=== PATIENT | male | born 1955 | race Caucasian/White ===

== ENCOUNTER 2019-07-10 07:58 | Outpatient (CLI) | payer OTHER, SELFPAY ==
--- NOTE | 2019-07-10 08:05 | USCV_ITS ---
Rick Hilary Age: 63 Gender: M : 1955 Exam Date: 07/10/2019 08:20 Ordering Phys: lIya Craven MD ([email or web address]) Technologist: Lina Wahl [place] [facility] [place]: DYSPNEA ON EXERTION BP: 107 / 74 HR: 110 Rhythm: Sinus Technical Quality: Good MEASUREMENTS (Male / Female) Normal Values 2D ECHO LV Diastolic Diameter PLAX 5.1 cm 4.2 - 5.9 / 3.9 - 5.3 cm LV Systolic Diameter PLAX 3.8 cm IVS Diastolic Thickness 1.0 cm 0.6 - 1.0 / 0.6 - 0.9 cm IVS Systolic Thickness 1.4 cm LVPW Diastolic Thickness 1.1 cm 0.6 - 1.0 / 0.6 - 0.9 cm LVPW Systolic Thickness 1.6 cm LVOT Diameter 2.0 cm LV Ejection Fraction 2D Teich 48.6 % LV Ejection Fraction MOD 2C 55.0 % LV Ejection Fraction 2C AL 57.4 % LA Diameter 4.3 cm LA Width 4.6 cm LA Height 6.7 cm RA Width 3.6 cm RA Height 6.6 cm Aorta at Sinotubular Diameter 2.9 cm M-MODE LV Diastolic Diameter MM 5.0 cm 4.2 - 5.9 / 3.9 - 5.3 cm LV Systolic Diameter MM 3.7 cm LV Ejection Fraction MM Teich 50.7 % IVS Diastolic Thickness MM 0.9 cm 0.6 - 1.0 / 0.6 - 0.9 cm IVS Systolic Thickness MM 1.2 cm LVPW Diastolic Thickness MM 1.1 cm 0.6 - 1.0 / 0.6 - 0.9 cm LVPW Systolic Thickness MM 1.5 cm Aortic Annulus Diameter 3.4 cm LA Ao Ratio MM 1.3 MV E Point Septal Separation 0.7 cm DOPPLER AV Peak Velocity 120.0 cm/s LVOT Peak Velocity 86.0 cm/s AV Area Cont Eq vti 2.4 cm squared AV Area Cont Eq pk 2.3 cm squared MV Area PHT 3.7 cm squared MV E' Velocity 97.0 cm/s TR Peak Velocity 204.2 cm/s TR Peak Gradient 16.7 mmHg TR Mean Velocity 163.1 cm/s TR Mean Gradient 11.3 mmHg TR Velocity Time Integral 52.3 cm TV Peak E Velocity 58.0 cm/s Right Atrial Pressure 3.0 mmHg Pulmonary Artery Systolic Pressu 19.7 mmHg PV Peak Velocity 76.0 cm/s RV Acceleration Time 0.1 s RV Ejection Time 0.2 s RV AcT/ET 0.3 FINDINGS Left Ventricle Mild diffuse hypokinesia of the left ventricle with ejection fraction around 45-50%. Right Ventricle Normal right ventricular size and systolic function. Right Atrium Mildly increased right atrial size. Left Atrium Mildly increased left atrial size. Mitral Valve Thickened mitral valve. Moderate mitral valve regurgitation. Aortic Valve Minimally thickened aortic valve Tricuspid Valve Tucq-ha-[id number] tricuspid valve regurgitation. Pulmonic Valve Pulmonic valve not well visualized. Pericardium No pericardial effusion. Aorta Normal aortic annulus size. CONCLUSIONS Mild diffuse hypokinesia of the left ventricle with ejection fraction around 45-50%. Mild biatrial enlargement. Minimally thickened aortic valve Thickened mitral valve. Moderate mitral valve regurgitation. Mgff-ft-mpbdmvzh tricuspid valve regurgitation. Estimated pulmonary artery peak systolic pressure of 20 mmHg. There is no pericardial effusion. There are no intracardiac masses. No similar previous studies are available for combat Dr Ilya Craven MD [facility] (Electronically Signed) Final Date: 10 July 2019 19:37 S
== END 2019-07-10 07:59 | disposition home or self-care (01) ==
PROVIDERS: Family Provider Emergency Medicine Emergency Medical Services; PCP Emergency Medicine Emergency Medical Services; Visit Provider Internal Medicine Cardiovascular Disease
DX: I48.91 Unspecified atrial fibrillation (principal); I08.3 Combined rheumatic disorders of mitral, aortic and tricuspid valves; R06.00 Dyspnea, unspecified
CPT/HCPCS: 93306

== ENCOUNTER 2019-07-18 08:48 | Outpatient (CLI) | payer OTHER, SELFPAY ==
[2019-07-18 09:13] VITALS: BMI 26.4
--- NOTE | 2019-07-18 09:24 | ECG_ITS ---
NAME OF STUDY: LEXISCAN SESTAMIBI STRESS TEST INDICATION: Chest Pain, PROCEDURE: At the baseline, the EKG revealed atrial fibrillation with rapid ventricular rate. Poor R wave progression. Nonspecific T wave changes. The baseline blood pressure was 147/96 mm Hg with a heart rate of 131 beats/min. Lexiscan was infused over a period of 20 seconds. A total of 0.4 milligrams of Lexiscan was infused. The stress phase was continued for a total of 5 minutes. Heart rate at the end of the stress phase was 148 with a blood pressure 150/106. The EKG at the peak infusion revealed no significant changes. Sestamibi was injected 20 seconds after the Lexiscan infusion. Blood pressure at the end of the recovery phase was 127/96 with a heart rate of 140 per minute. CONCLUSION: 1. No significant EKG changes with the LexiScan infusion 2. No LexiScan induced chest pain or cardiac arrhythmia 3. Normal blood pressure and heart rate response 4. Sestamibi/sestamibi perfusion scan pending; see separate report. Electronically Signed On 07-18-2019 13:45:42 [facility] by Ilya Craven M.D. [email or web address]
--- NOTE | 2019-07-18 09:25 | NMCV_ITS ---
Hilary Cabrera Age: 63 Gender: M : 1955 Exam Date: 07/18/2019 09:46 Ordering Phys: Ilya Craven MD ([email or web address]) Technologist: TANISHA Aggarawl Exam Location: [facility] Indications: Dyspena STRESS TEST Please see separate stress test report in [facility] for full findings IMAGE PROTOCOL Rest/Stress 1 Lexiscan Day Radiopharmaceutical Dose (mCi) Administration Site Administered by Rest: Tc-99m 10.4 IV TANISHA Aggarwal Stress:Tc-99m 29.3 IV TANISHA Aggarwal Rest: 07/18/2019 60 Discovery 630 Stress: 07/18/2019 60 Discovery 630 0.4mg Lexiscan. Images obtained in supine and prone position. SPECT RESULTS Technical Quality: Good Raw Data Analysis: Adequate Image Corrections: No attenuation or motion correction applied Summed Stress Score: 1 Summed Rest Score: 5 Summed Difference Score: 0 PERFUSION FINDINGS Small area of slightly decreased tracer uptake in the mid and apical inferior wall regions and LV apex with no significant reversibility. FUNCTIONAL RESULTS (calculated via Gated SPECT) Stress Image LV EF (%): 37 Stress EDV (mL):154 TID: 1.25 Stress ESV (mL):97 FUNCTIONAL FINDINGS: Segmental wall motion analysis revealed diffuse hypokinesia of the left ventricle. IMPRESSIONS #1. Myocardial perfusion imaging revealing small areas of persistent decreased tracer uptake in the inferior wall and LV apex, suggestive of myocardial scarring versus attenuation artifact. #2. Moderately diminished LV ejection fraction of 37%. #3. LV wall motion analysis revealing diffuse hypokinesia of the left ventricle. #4. Moderately dilated LV cavity with an end-systolic volume of 97 mL. #5. Elevated transient ischemic dilatation ratio, may suggest endocardial ischemia. But the positive predictive value of this finding is limited. Clinical correlation is recommended. Dr Ilya Craven MD [facility] (Electronically Signed) Final Date: 19 July 2019 00:11 S
[2019-07-18] MEDS: regadenoson 0.4 Mg/5 ml Syringe IVP (10:34)
[2019-07-18 10:38] VITALS: BP 139/107; PULSE 140
== END 2019-07-18 08:49 | disposition home or self-care (01) ==
LOC: RAD 08:50
PROVIDERS: Family Provider Emergency Medicine Emergency Medical Services; PCP Emergency Medicine Emergency Medical Services; Visit Provider Internal Medicine Cardiovascular Disease
DX: I48.91 Unspecified atrial fibrillation (principal); R06.00 Dyspnea, unspecified
CPT/HCPCS: 78452; 93017; A9500; J2785

== ENCOUNTER → 2019-08-28 10:00 | Outpatient (BNVA) | payer OTHER, SELFPAY | PROVIDERS: Family Provider Emergency Medicine Emergency Medical Services; PCP Emergency Medicine Emergency Medical Services; Visit Provider Urology | DX: N13.8 Other obstructive and reflux uropathy (principal); N40.1 Benign prostatic hyperplasia with lower urinary tract symptoms; R31.21 Asymptomatic microscopic hematuria | CPT/HCPCS: 81001 ==

== ENCOUNTER → 2020-02-17 13:25 | Outpatient (BNVA) | payer OTHER, SELFPAY | PROVIDERS: Family Provider Emergency Medicine Emergency Medical Services; PCP Emergency Medicine Emergency Medical Services; Referring Provider Emergency Medicine Emergency Medical Services; Visit Provider Specialist | DX: G56.01 Carpal tunnel syndrome, right upper limb (principal); G56.02 Carpal tunnel syndrome, left upper limb | CPT/HCPCS: 73110 ==

== ENCOUNTER 2020-02-28 09:05 | Day surgery (SDC) | payer OTHER, SELFPAY ==
--- NOTE | 2020-02-28 09:23 | ECG_ITS ---
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 Measurements Intervals [place] Rate: 73 P: VT: -1 QRS: -2 QRSD: 92 T: 21 QT: 386 QTc: 427 Interpretive Statements ATRIAL FIBRILLATION ABNORMAL RHYTHM ECG No previous ECG available for comparison Electronically Signed On 02-28-2020 20:20:37 CDT by Ina Bautista M.D. [id number]
[2020-02-28 09:26] VITALS: BP 127/86; PULSE 63; RESP 18; TEMP 36.9; O2SAT 97; BMI 25.4
--- NOTE | 2020-02-28 09:32 | ANES.PREANE2 ---
Pre-Anesthetic Assessment Pre-Anesthetic Assessment: Height/Weight: Height 1.78 m Weight 80.286 kg Temp Pulse Resp BP Pulse Ox 98.4 F 63 18 127/86 97 02/28/20 09:26 02/28/20 09:26 02/28/20 09:26 02/28/20 09:26 02/28/20 09:26 Preop Diagnosis: afib Proposed Procedure: Operation Date: 02/28/20 10:00 Proposed Procedures p Cardioversion(Not Applicable) - Ilya Craven MD Was Beta Nickie taken within 24 hours: Yes Last intake: 02/26 Social: Social History: Alcohol (6p) Exam: Pre-Anes Outpt Exam: alert, oriented x 3, clear to auscultation bilaterally and regular rate & rhythm Airway: Submandibular: WNL Cervical ROM: WNL MP: 2 Dentition: Full History/ROS: No significant history except as noted and No significant complaints Pulmonary: Pulmonary: None reported CV/HEM: CV/HEM: Afib, CHF and HTN : : None reported Hepatic: Hepatic: None reported GI: GI: None reported Metabolic: Metabolic: None reported Musc/skel: Musc/skel: OA/DJD Neuropsych: Neuropsych: None reported Anesthetic Plan: ASA status: 4 Anesthesia: MAC PFSH Anesthesia PFSH: Medical History Asymptomatic microscopic hematuria Atrial fibrillation Atrial fibrillation with rapid ventricular response BPH with obstruction/lower urinary tract symptoms Cardiomyopathy Fatigue Hematuria Primary hypertension Shortness of breath Stricture of urethral meatus in male Surgical History History of cataract surgery Hx of tonsillectomy S/P wisdom tooth extraction Family History Other Cancer Social History Smoking and tobacco status: smoker, details unknown smokeless tobacco Smokeless tobacco user: chewing tobacco Alcohol intake: current Alcohol intake frequency: 0-2 Drinks per Day Alcohol type: beer Adopted: No Caregiver/support person: No Lives independently: No Household members: spouse Housing: House Marital status: Current occupational status: retired History of recent travel: No Current gender identity: Male Data Anesthesia Cardiac Studies: Holter Monitor 01/29/20
--- NOTE | 2020-02-28 09:36 | W.PM.OPSUD ---
Surgery/Procedure H&P Update DATE OF PROCEDURE: February 28, 2020 DATE H&P PERFORMED: 02/04/20 H&P UPDATE INFORMATION: I have reviewed H&P completed within last 30 days, I have examined patient prior to procedure and No changes to prior documentation PREOP DIAGNOSIS: Symptomatic atrial fibrillation PLANNED PROCEDURE: Operation Date: 02/28/20 10:00 Proposed Procedures p Cardioversion(Not Applicable) - Ilya Craven MD PATIENT REASSESSED PRIOR TO SEDATION, WITH NO CHANGE NOTED: Yes PHYSICAL EXAM: alert, oriented x 3 and clear to auscultation bilaterally AIRWAY EVAL/ANESTHESIA PLAN: normal airway, see other exam findings, ASA II and Monitored Anesthesia
[2020-02-28 09:54] VITALS: BP 104/70; PULSE 57; RESP 16; TEMP 36.9; O2SAT 100
--- NOTE | 2020-02-28 10:12 | SUR.PHASEII ---
TOTAL NS RECIEVED DURING CARDIOVERSION
[2020-02-28] MEDS: propafenone 150 mg Tablet PO (10:13)
--- NOTE | 2020-02-28 10:29 | ECG_ITS ---
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 Measurements Intervals [place] Rate: 53 P: 34 HI: 149 QRS: -11 QRSD: 102 T: 18 QT: 448 QTc: 421 Interpretive Statements SINUS BRADYCARDIA LOW QRS VOLTAGE IN PRECORDIAL LEADS Non specific T wave changes Compared to ECG 02/28/2020 09:38:55 Low QRS voltage now present Atrial fibrillation no longer present Electronically Signed On 02-28-2020 20:20:15 CDT by Ina Bautista M.D. [id number]
--- NOTE | 2020-03-13 16:33 | PM.OP ---
Operative Report Date of procedure: 02/28/2020 Pre-op Diagnosis: Symptomatic atrial fibrillation Procedure: Electrical cardioversion report Preprocedure diagnoses: Atrial fibrillation/hypertension. Brief history: This is a 64-year-old white male with history of symptomatic atrial fibrillation, was recommended for a electrical cardioversion for symptom relief and further management during his last office visit. Location of the procedure: Outpatient, [facility] Electrode application: Anteroposterior Electrical energy applied: 150 J Number of shocks: 2 Final rhythm: Normal sinus rhythm Final blood pressure: 106/60 Complications: None Recommendation(s): Patient was started on propafenone 150 mg p.o. every 8 hours. The first dose was given in the hospital. The patient tolerated the procedure very well and there are no complications
== END 2020-02-28 10:56 | disposition home or self-care (01) ==
PROVIDERS: PCP Emergency Medicine Emergency Medical Services; Visit Provider Internal Medicine Cardiovascular Disease
PROC: 5A2204Z Restoration of Cardiac Rhythm, Single (ICD-10-PCS; CPT 92960; principal; 2020-02-28 10:00)
DX: I48.91 Unspecified atrial fibrillation (principal); I11.0 Hypertensive heart disease with heart failure; I50.9 Heart failure, unspecified; I42.9 Cardiomyopathy, unspecified; F17.220 Nicotine dependence, chewing tobacco, uncomplicated; Z79.01 Long term (current) use of anticoagulants; Z79.82 Long term (current) use of aspirin
CPT/HCPCS: 92960; 12345; 93005; J2704; J7030

== ENCOUNTER → 2020-04-07 15:08 | Outpatient (BNVA) | payer OTHER, SELFPAY | PROVIDERS: PCP Emergency Medicine Emergency Medical Services; Visit Provider Specialist | DX: Z11.59 Encounter for screening for other viral diseases (principal) | CPT/HCPCS: 87635 ==

== ENCOUNTER 2020-04-10 06:04 | Day surgery (SDC) | payer OTHER, SELFPAY ==
[2020-04-09 08:29] VITALS: BMI 25.8
[2020-04-10 06:16] VITALS: BP 126/82; PULSE 52; RESP 18; TEMP 36.6; O2SAT 96
[2020-04-10] MEDS: CELEcoxib 200 mg Capsule 400 MG PO (06:35)
[2020-04-10] MEDS: sodium chloride 0.9% 1,000 ML 30 ML IV (06:40)
--- NOTE | 2020-04-10 06:48 | P.HPUD_ITS ---
Surgery/Procedure H&P Update DATE OF PROCEDURE: April 10, 2020 DATE H&P PERFORMED: 04/02/20 H&P UPDATE INFORMATION: I have reviewed H&P completed within last 30 days, I have examined patient prior to procedure, No changes to prior documentation and [place] is [place] [facility] [place] indicated PREOP DIAGNOSIS: Left carpal tunnel syndrome PLANNED PROCEDURE: Operation Date: 04/10/20 07:00 Proposed Procedures p Carpal Tunnel Release 31907 G56.02(Left) - Amelia Bender MD Related Problem List Diagnoses (1) Carpal tunnel syndrome, left:
[2020-04-10 06:50] LABS: Basophils # 0.1 10^3/uL (0.0-0.1); Basophils % 0.6 %; Eosinophils # 0.2 10^3/uL (0.0-0.8); Eosinophils % 2.3 %; Hematocrit 48.4 % (42.0-52.0); Hemoglobin 16.1 g/dL (11.7-16.6); Lymphocytes # 1.7 10^3/uL (0.8-4.8); Lymphocytes % 20.1 %; Mean Corpuscular HGB Conc 33.3 g/dL (30.0-36.0); Mean Corpuscular Hemoglobin 31.7 pg (28.0-34.0); Mean Corpuscular Volume 95.3 fL (80-94); Mean Platelet Volume 10.7 fL (7.4-10.4); Monocytes # 0.8 10^3/uL (0.2-0.9); Neutrophils # 5.61 10^3/uL (1.8-7.7); Neutrophils % 67.6 %; Nucleated Red Blood Cells % 0 %; Platelet Count 232 10^3/cmm (130-400); Red Blood Count 5.08 10^6/uL (4.1-5.3); Red Cell Distribution Width 12.7 % (12.1-15.1); White Blood Count 8.3 10^3/uL (4.0-10.0)
--- NOTE | 2020-04-10 06:58 | P.ANESASSM_ITS ---
Pre-Anesthetic Assessment Pre-Anesthetic Assessment: Height/Weight: Height 1.78 m Weight 81.647 kg Temp Pulse Resp BP Pulse Ox 97.9 F 52 L 18 126/82 96 04/10/20 06:16 04/10/20 06:16 04/10/20 06:16 04/10/20 06:16 04/10/20 06:16 Preop Diagnosis: Left carpal tunnel syndrome Proposed Procedure: Operation Date: 04/10/20 07:00 Proposed Procedures p Carpal Tunnel Release 85750 G56.02(Left) - Amelia Bender MD Was Beta Nickie taken within 24 hours: Yes Last intake: Intake Last Liquid Date 04/09/20 Last Liquid Time 21:00 Last Solid Date 04/09/20 Last Solid Time 19:00 Social: Social History: No alcohol and No tobacco Exam: Pre-Anes Outpt Exam: alert, oriented x 3, clear to auscultation bilaterally and regular rate & rhythm Airway: Submandibular: WNL Cervical ROM: WNL MP: 2 Dentition: Chipped History/ROS: No significant complaints Pulmonary: Pulmonary: None reported CV/HEM: CV/HEM: Afib and HTN Hepatic: Hepatic: None reported GI: GI: None reported Metabolic: Metabolic: None reported Musc/skel: Musc/skel: None reported Neuropsych: Neuropsych: None reported Anesthetic Plan: ASA status: 3 Anesthesia: MAC Risk of > 500 ml blood loss (7ml/kg in children): No Meds/Allergies Current Medications: Current Medications Generic Name Dose Route Start Last Admin Trade Name Freq PRN Reason Stop Dose Admin Sodium Chloride 1,000 mls @ 30 ml s/hr 04/10/20 06:15 04/10/20 06:40 Sodium Chloride 0.9% IV 04/11/20 06:14 30 mls/hr .Q24H RAMÍREZ Administration PFSH Anesthesia PFSH: Medical History Asymptomatic microscopic hematuria Atrial fibrillation Atrial fibrillation with rapid ventricular response BPH with obstruction/lower urinary tract symptoms Cardiomyopathy Fatigue Hematuria Primary hypertension Shortness of breath Stricture of urethral meatus in male Surgical History History of cataract surgery Hx of tonsillectomy S/P wisdom tooth extraction Family History Other Cancer Social History Smoking and tobacco status: smoker, details unknown smokeless tobacco Smokeless tobacco user: chewing tobacco Alcohol intake: current Alcohol intake frequency: 0-2 Drinks per Day Alcohol type: beer Adopted: No Caregiver/support person: No Lives independently: No Household members: spouse Housing: House Marital status: Current occupational status: retired History of recent travel: No Current gender identity: Male Data Anesthesia CBC & Chem 7: 04/10/20 06:40 04/10/20 06:40 Other Labs: Laboratory Results - last 48 hr 04/10/20 06:40 WBC 8.3 RBC 5.08 Hgb 16.1 Hct 48.4 MCV 95.3 H MCH 31.7 MCHC 33.3 RDW 12.7 Plt Count 232 MPV 10.7 H Neut % (Auto) 67.6 Lymph % (Auto) 20.1 [place] % (Auto) 9.0 Eos % (Auto) 2.3 Baso % (Auto) 0.6 Neut # (Auto) 5.61 Lymph # (Auto) 1.7 [place] # (Auto) 0.8 Eos # (Auto) 0.2 Baso # (Auto) 0.1 Nucleated RBC % (auto) 0 Nucleated RBCs # 0.0 Cardiac Studies: Holter Monitor 01/29/20
[2020-04-10 07:06] LABS: Alanine Aminotransferase 19 U/L (0-41); Albumin Level 4.4 g/dL (3.5-5.2); Alkaline Phosphatase 57 IU/L (40-130); Aspartate Amino Transferase 25 U/L (0-40); Blood Urea Nitrogen 28 mg/dL (8-23); Calcium 9.4 mg/dL (8.5-10.5); Carbon Dioxide 23 mmol/L (22-29); Chloride 102 mmol/L (98-107); Globulin 2.7 g/dL (1.3-4.6); Glomerular Filtration Rate 47.1 mL/min (90-130); Glucose 136 mg/dL (65-115); Osmolality Calculated 290 mOsm/kg (285-295); Sodium 136 mmol/L (136-145); Total Protein 7.1 g/dL (6.6-8.7)
[2020-04-10 07:42] VITALS: BP 106/66; PULSE 51; RESP 14; TEMP 36.2; O2SAT 95
--- NOTE | 2020-04-10 07:59 | PM.OP ---
Operative Report Date of procedure: April 10, 2020 Pre-op Diagnosis: Left carpal tunnel syndrome Post-op diagnosis: same Post-op Findings: Compression across the median nerve Procedure Done: Left carpal tunnel release Specimens removed/disposition: None Pathology: none sent Surgeon: Amelia Bender Anesthesia: MAC (With Manuela block) Estimated blood loss (mL): 5 Tourniquet time (min): 30 IV fluids (mL): 500 Urine output (mL): 0 Urine output: No Long Complications: None Findings: Significant thickening of the transverse carpal ligament with compression across the median nerve and inflammation within the nerve Condition: stable Disposition: same day Brief History: This 64-year-old gentleman presented with complaints of bilateral carpal tunnel syndrome. The left was worse than the right. He wished to proceed with operative interventions. He was non-responsive to nonoperative measures. Risks and complications were discussed with him. Consents were signed and questions were answered. Procedure: The patient was brought to the operating theater. The patient had a Manuela block with MAC. The tourniquet was elevated to 250 mmHg for a total tourniquet time of 30 minutes. The patient was also given Ancef 2 g preoperatively. The arm was then prepped and draped with DuraPrep in usual fashion with the arm draped free. A surgical pause was performed. At the time, the surgical pause, we confirmed the site and side of surgery. We also confirmed the patient's identity, appropriate and timely administration of preoperative antibiotics and preoperative surgical markings. An incision was then made along the thenar crease. The incision crossed the wrist joint in a curvilinear fashion. Dissection continued through skin and soft tissues using a scalpel. The palmaris longus was identified along with the transverse carpal ligament. Each of these was released carefully to avoid injury to the median nerve. We were able to dissect gently into the carpal canal which was noted to be quite tight with significant compression across the median nerve. The nerve was visualized and was an hourglass shape. The canal was subsequently palpated to assure there was no bony encroachment upon the canal. There was a quite thickened fibrous tissue within the canal, and this was opened longitudinally as well. The canal was then palpated distally and proximally to assure that my small finger was passed easily without impingement. Finding this to be so, attention was directed to closure. The wound was irrigated with ropivacaine plain. It was then closed with 3-0 nylon in an interrupted mattress fashion. Sterile dressing was then placed consisting of Xeroform gauze, fluffed fluffs, sterile soft roll, a volar splint, and an Maciel wrap. The tourniquet was released after 30 minutes. There were no complications. There were no specimens. The procedure was well tolerated. Plan is the patient will be discharged home. Associated Problem List Diagnoses (1) Carpal tunnel syndrome, left:
[2020-04-10 08:13] VITALS: BP 120/73; PULSE 46; RESP 16; O2SAT 94
== END 2020-04-10 08:18 | disposition home or self-care (01) ==
PROVIDERS: PCP Emergency Medicine Emergency Medical Services; Visit Provider Specialist
PROC: (CPT 64721; principal; 2020-04-10 07:00)
DX: G56.02 Carpal tunnel syndrome, left upper limb (principal); I48.91 Unspecified atrial fibrillation; I10 Essential (primary) hypertension; N40.1 Benign prostatic hyperplasia with lower urinary tract symptoms; N13.8 Other obstructive and reflux uropathy; F17.290 Nicotine dependence, other tobacco product, uncomplicated
CPT/HCPCS: 64721; 12345; 36415; 80053; 85025; 96365; J0131; J0690; J2704; J3010; J3490; J7030

== ENCOUNTER → 2020-05-04 16:04 | Outpatient (BNVA) | payer OTHER, SELFPAY | PROVIDERS: PCP Emergency Medicine Emergency Medical Services; Visit Provider Specialist | DX: Z11.59 Encounter for screening for other viral diseases (principal) | CPT/HCPCS: 87635 ==

== ENCOUNTER 2020-05-08 07:24 | Day surgery (SDC) | payer OTHER, SELFPAY ==
[2020-05-07 17:55] VITALS: BMI 25.8
[2020-05-08 07:38] VITALS: BP 137/81; PULSE 52; RESP 18; TEMP 36.6; O2SAT 95
--- NOTE | 2020-05-08 07:45 | W.PM.OPSUD ---
Surgery/Procedure H&P Update DATE OF PROCEDURE: May 08, 2020 DATE H&P PERFORMED: 04/23/20 H&P UPDATE INFORMATION: I have reviewed H&P completed within last 30 days, No changes to prior documentation and H&P is in [facility] [place] on date indicated PREOP DIAGNOSIS: Right carpal tunnel syndrome PLANNED PROCEDURE: Operation Date: 05/08/20 09:00 Proposed Procedures p right Carpal Tunnel Release [id number] G56.00(Right) - Amelia Bender MD Related Problem List Diagnoses (1) Carpal tunnel syndrome on right:
[2020-05-08] MEDS: sodium chloride 0.9% 1,000 ML 30 ML IV (07:50)
[2020-05-08] MEDS: CELEcoxib 200 mg Capsule 400 MG PO (07:50)
--- NOTE | 2020-05-08 08:03 | P.ANESASSM_ITS ---
Pre-Anesthetic Assessment Pre-Anesthetic Assessment: Height/Weight: Height 1.78 m Weight 81.647 kg Temp Pulse Resp BP Pulse Ox 98 F 52 L 18 137/81 95 05/08/20 07:38 05/08/20 07:38 05/08/20 07:38 05/08/20 07:38 05/08/20 07:38 Preop Diagnosis: Right carpal tunnel syndrome Proposed Procedure: Operation Date: 05/08/20 09:00 Proposed Procedures p right Carpal Tunnel Release [id number] G56.00(Right) - Amelia Bender MD Familial anesthetic complications: None Was Beta Nickie taken within 24 hours: Yes Last intake: Intake Last Liquid Date 05/07/20 Last Liquid Time 19:00 Last Solid Date 05/07/20 Last Solid Time 19:00 Social: Social History: Tobacco Comment: chewing tobacco Exam: Pre-Anes Outpt Exam: alert, oriented x 3, clear to auscultation bilater ally and regular rate & rhythm Airway: Cervical ROM: WNL MP: 2 Dentition: Chipped CV/HEM: CV/HEM: Afib (s/p cardioversion - holding anticoagulation for surgery) and HTN Comments: 07/08/19 stress test --> EF 37%, LV hypokinesis Echo 07/10/19 - EF 45%, mod MVR, mod TVR Anesthetic Plan: ASA status: 3 Anesthesia: MAC and Regional (specify below) (bushra block) Risk of > 500 ml blood loss (7ml/kg in children): No Meds/Allergies Current Medications: Current Medications Generic Name Dose Route Start Last Admin Trade Name Freq PRN Reason Stop Dose Admin Sodium Chloride 1,000 mls @ 30 ml s/hr 05/08/20 07:45 05/08/20 07:50 Sodium Chloride 0.9% IV 05/09/20 07:44 30 mls/hr .Q24H RAMÍREZ Administration PFSH Anesthesia PFSH: Medical History Asymptomatic microscopic hematuria Atrial fibrillation Atrial fibrillation with rapid ventricular response BPH with obstruction/lower urinary tract symptoms Cardiomyopathy Fatigue Hematuria Primary hypertension Shortness of breath Stricture of urethral meatus in male Surgical History History of cataract surgery Hx of tonsillectomy S/P wisdom tooth extraction Family History Other Cancer Social History Smoking and tobacco status: smoker, details unknown smokeless tobacco Smokeless tobacco user: chewing tobacco Alcohol intake: current Alcohol intake frequency: 0-2 Drinks per Day Alcohol type: beer Adopted: No Caregiver/support person: No Lives independently: No Household members: spouse Housing: House Marital status: Current occupational status: retired History of recent travel: No Current gender identity: Male Data Anesthesia Cardiac Studies: Holter Monitor 01/29/20
[2020-05-08 08:14] LABS: Basophils # 0.1 10^3/uL (0.0-0.1); Basophils % 0.6 %; Eosinophils # 0.1 10^3/uL (0.0-0.8); Eosinophils % 1.4 %; Hematocrit 47.9 % (42.0-52.0); Hemoglobin 16.5 g/dL (11.7-16.6); Lymphocytes # 1.6 10^3/uL (0.8-4.8); Lymphocytes % 18.7 %; Mean Corpuscular HGB Conc 34.4 g/dL (30.0-36.0); Mean Corpuscular Volume 92.8 fL (80-94); Mean Platelet Volume 10.7 fL (7.4-10.4); Monocytes # 0.6 10^3/uL (0.2-0.9); Monocytes % 7.1 %; Neutrophils # 6.32 10^3/uL (1.8-7.7); Neutrophils % 71.7 %; Nucleated Red Blood Cells % 0 %; Platelet Count 242 10^3/cmm (130-400); Red Blood Count 5.16 10^6/uL (4.1-5.3); Red Cell Distribution Width 12.6 % (12.1-15.1); White Blood Count 8.8 10^3/uL (4.0-10.0)
[2020-05-08 08:29] LABS: Anion Gap 13.7 (5-19); Blood Urea Nitrogen 22 mg/dL (8-23); Calcium 9.6 mg/dL (8.5-10.5); Carbon Dioxide 26 mmol/L (22-29); Chloride 104 mmol/L (98-107); Glucose 122 mg/dL (65-115); Osmolality Calculated 295 mOsm/kg (285-295); Potassium 3.7 mmol/L (3.5-5.1); Sodium 140 mmol/L (136-145)
[2020-05-08] MEDS: ceFAZolin 1,000 MG in sodium chloride 0.9% (plus) 50 ML 100 MG IV (09:07)
[2020-05-08 09:45] VITALS: BP 113/66; PULSE 53; RESP 18; TEMP 36.4; O2SAT 94
--- NOTE | 2020-05-08 09:48 | PM.OP ---
Operative Report Date of procedure: May 08, 2020 Pre-op Diagnosis: Right carpal tunnel syndrome Post-op diagnosis: same Procedure Done: Right carpal tunnel release Specimens removed/disposition: None Pathology: none sent Surgeon: Amelia Bender Labour Market Economist: None Anesthesia: MAC (With Manuela block, ASA 2) Estimated blood loss (mL): 5 Tourniquet time (min): 24 Tourniquet time: At 250 mmHg IV fluids (mL): 300 Urine output (mL): 0 Urine output: No Long Complications: None Findings: Significant thickening of the transverse carpal ligament with compression across the median nerve. Significant compression across the canal Condition: stable Disposition: same day Brief History: This 64-year-old gentleman presented with complaints of bilateral carpal tunnel syndrome. The left was worse than the right. He underwent left carpal tunnel release in early April, and he wishes now to proceed with right. He wished to proceed with operative interventions. He was non-responsive to nonoperative measures. Risks and complications were discussed with him. Consents were signed and questions were answered. Procedure: The patient was brought to the operating theater. The patient had a Manuela block with MAC. The tourniquet was elevated to 250 mmHg for a total tourniquet time of 30 minutes. The patient was also given Ancef 2 g preoperatively. The arm was then prepped and draped with DuraPrep in usual fashion with the arm draped free. A surgical pause was performed. At the time, the surgical pause, we confirmed the site and side of surgery. We also confirmed the patient's identity, appropriate and timely administration of preoperative antibiotics and preoperative surgical markings. An incision was then made along the thenar crease. The incision crossed the wrist joint in a curvilinear fashion. Dissection continued through skin and soft tissues using a scalpel. The palmaris longus was identified along with the transverse carpal ligament. Each of these was released carefully to avoid injury to the median nerve. We were able to dissect gently into the carpal canal which was noted to be quite tight with significant compression across the median nerve. The nerve was visualized and was an hourglass shape. The canal was subsequently palpated to assure there was no bony encroachment upon the canal. The canal was then palpated distally and proximally to assure that my small finger was passed easily without impingement. Finding this to be so, attention was directed to closure. The wound was irrigated with ropivacaine plain. It was then closed with 3-0 nylon in an interrupted mattress fashion. Sterile dressing was then placed consisting of Xeroform gauze, fluffed fluffs, sterile soft roll, a volar splint, and an Maciel wrap. The tourniquet was released after 30 minutes. There were no complications. There were no specimens. The procedure was well tolerated. Plan is the patient will be discharged home. Associated Problem List Diagnoses (1) Carpal tunnel syndrome on right:
[2020-05-08 10:00] VITALS: BP 102/69; PULSE 44; RESP 18; O2SAT 94
--- NOTE | 2020-05-08 10:15 | ANE.PACU2 ---
Inpatient post-anesthesia follow up: Airway intact: Yes Vital signs: Temperature 97.6 F Pulse Rate 44 Respiratory Rate 18 Blood Pressure 102/69 Pulse Oximetry 94 Oxygen Delivery Me thod Room Air Oxygen Flow Rate Fraction of Inspir ed Oxygen Hydration adequate: Yes Nausea and vomiting: No Pain level: 2 Mental status: Baseline
== END 2020-05-08 10:18 | disposition home or self-care (01) ==
PROVIDERS: PCP Emergency Medicine Emergency Medical Services; Visit Provider Specialist
PROC: (CPT 64721; principal; 2020-05-08 09:00)
DX: G56.01 Carpal tunnel syndrome, right upper limb (principal); I48.91 Unspecified atrial fibrillation; N40.1 Benign prostatic hyperplasia with lower urinary tract symptoms; N13.8 Other obstructive and reflux uropathy; I10 Essential (primary) hypertension; F17.290 Nicotine dependence, other tobacco product, uncomplicated
CPT/HCPCS: 64721; 12345; 80048; 85025; 96365; J0131; J0690; J2704; J3010; J3490; J7030

== ENCOUNTER → 2020-10-14 07:59 | Outpatient (BNVA) | payer OTHER, SELFPAY | PROVIDERS: PCP Emergency Medicine Emergency Medical Services; Visit Provider Urology | DX: R31.21 Asymptomatic microscopic hematuria (principal); N40.1 Benign prostatic hyperplasia with lower urinary tract symptoms; N13.8 Other obstructive and reflux uropathy | CPT/HCPCS: 81003 ==

== ENCOUNTER → 2021-09-10 10:36 | Outpatient (BNVA) | payer OTHER, SELFPAY | PROVIDERS: PCP Emergency Medicine Emergency Medical Services; Visit Provider Surgery | DX: Z20.822 Contact with and (suspected) exposure to COVID-19 (principal) | CPT/HCPCS: 87635 ==

== ENCOUNTER 2021-09-15 07:35 | Day surgery (SDC) | payer OTHER, SELFPAY ==
[2021-09-10 14:02] VITALS: BMI 27.9
--- NOTE | 2021-09-15 07:53 | ANES.PREANE2 ---
Pre-Anesthetic Assessment Height/Weight: Height 1.78 m Weight 88.451 kg Preop Diagnosis: Right carpal tunnel syndrome Operation Date: 09/15/21 09:15 Proposed Procedures p Colonoscopy 08828 Z86.010(Not Applicable) - Miller Scott MD Familial anesthetic complications: None Was Beta Nickie taken within 24 hours: Yes Was Clonidine taken within 24 hours: N/A Last intake: > 8hrs Social Alcohol and Tobacco (chews) Exam alert, oriented x 3, clear to auscultation bilaterally and regular rate & rhythm Airway Mallampati: Class II Dentition: full Pulmonary None reported CV/HEM Atrial Fibrillation and Hypertension None reported Hepatic None reported GI None reported Metabolic None reported Musc/skel None reported Neuropsych None reported Anesthetic Plan ASA status: 3 Anesthesia: MAC Risk of > 500 ml blood loss (7ml/kg in children): No Medications/Allergies Home Medications Medication Instructions Recorded Confirmed Last Taken Type tamsulosin 0.4 mg capsule 0.4 mg PO QDAY 07/30/19 09/10/21 05/07/20 History diltiazem HCl 300 mg capsule,24 300 mg PO DAILY #30 cap 03/23/20 09/10/21 05/08/20 06:00 Rx hr,extended release hydrochlorothiazide 25 mg tablet 25 mg PO QAM #90 tab 03/23/20 09/10/21 05/07/20 Rx losartan 100 mg tablet 100 mg PO QDAY #90 tab 03/23/20 09/10/21 05/08/20 06:00 Rx metoprolol succinate 25 mg capsule 25 mg PO DAILY #90 each 03/23/20 09/10/21 05/08/20 06:00 Rx sprinkle, ext. release 24 hr propafenone 150 mg tablet 150 mg PO Q8H #90 tab 03/30/20 09/10/21 05/07/20 Rx apixaban 5 mg tablet (Eliquis) 5 mg PO BID #180 tab 03/23/21 09/10/21 Unknown Rx Allergies Allergy/AdvReac Type Severity Reaction Status Date / Time No Known Allergies Allergy Verified 07/14/21 17:46 [facility] Anesthesia Medical History Asymptomatic microscopic hematuria Atrial fibrillation Atrial fibrillation with rapid ventricular response BPH with obstruction/lower urinary tract symptoms Cardiomyopathy Fatigue Hematuria High risk medication use Primary hypertension Shortness of breath Stricture of urethral meatus in male Surgical History History of bilateral carpal tunnel release History of cataract surgery Hx of tonsillectomy S/P wisdom tooth extraction Family History Mother Cancer Hypertension Pacemaker Father Cancer CAD (coronary artery disease) Sister Cancer Brother Cancer Denies family history of Diabetes Clotting disorder Dementia Hyperlipidemia Chronic kidney disease (CKD) Suicide Anesthesia complication Bleeding disorder Lung disease Stroke Social History Smoking and tobacco status: smoker, details unknown (Smokeless Tobacco) smokeless tobacco Smokeless tobacco user: chewing tobacco Alcohol intake: current Alcohol intake frequency: 0-2 Drinks per Day Alcohol type: beer Adopted: No Caregiver/support person: No Lives independently: No Household members: spouse Housing: House Marital status: Current occupational status: retired History of recent travel: No Current gender identity: Male Data Anesthesia Cardiac Studies: Echocardiogram Ultrasound 07/10/19 Sestamibi Stress Test (Cardiology) 07/18/19 Cardiac Event Monitor 06/16/20 Holter Monitor 01/29/20
[2021-09-15 08:11] VITALS: BP 145/91; PULSE 66; RESP 18; TEMP 36.4; O2SAT 95
[2021-09-15] MEDS: sodium chloride 0.9% 1,000 ML 30 ML IV (08:20)
--- NOTE | 2021-09-15 08:53 | W.PM.OPSFHP ---
Same Day Surgery H&P Indication for Procedure/HPI DATE OF PROCEDURE: September 15, 2021 CHIEF COMPLAINT/INDICATIONFOR SURGICAL PROCEDURE: History of colon polyps PREOP DIAGNOSIS: History of colon polyps PLANNED PROCEDURE: Operation Date: 09/15/21 09:15 Proposed Procedures p Colonoscopy 31412 Z86.010(Not Applicable) - Miller Scott MD 07/14/2021 This is a pleasant 65 years old gentleman with history of colon polyps.? Last colonoscopy was done about 11 years ago.? Patient denies bleeding per rectum or nonintentional weight loss or history of colon cancer 09/15/2021 Patient comes today for surveillance colonoscopy ROS All systems have been reviewed negative except as per the above or per problem list Medications/Allergies* Home Medications Medication Instructions Recorded Confirmed Type tamsulosin 0.4 mg capsule 0.4 mg PO QDAY 07/30/19 09/10/21 History Allergies/Adverse Reactions Allergy/AdvReac Type Severity Reaction Status Date / Time No Known Allergies Allergy Verified 09/15/21 08:54 Current Medications: Generic Name Dose Route Start Last Admin Trade Name Freq PRN Reason Stop Dose Admin Sodium Chloride 1,000 mls @ 30 mls/hr 09/15/21 08:15 09/15/21 08:20 Sodium Chloride 0.9% IV 30 mls/hr .Q24H RAMÍREZ Administration Pertinent History/Comorbid Conditions* Medical History (Updated 07/14/21 @ 17:47 by Miller Scott MD) Asymptomatic microscopic hematuria Atrial fibrillation Atrial fibrillation with rapid ventricular response BPH with obstruction/lower urinary tract symptoms Cardiomyopathy Fatigue Hematuria High risk medication use Primary hypertension Shortness of breath Stricture of urethral meatus in male Surgical History (Updated 10/14/20 @ 08:15 by Sharan Jeff MD) History of bilateral carpal tunnel release History of cataract surgery Hx of tonsillectomy S/P wisdom tooth extraction Family History (Updated 06/16/20 @ 11:12 by Maris Dodson RN) CAD (coronary artery disease) Father Pacemaker Mother Cancer Mother Father Sister Brother Hypertension Mother Denies family history of Diabetes Clotting disorder Dementia Hyperlipidemia Chronic kidney disease (CKD) Suicide Anesthesia complication Bleeding disorder Lung disease Stroke Social History Smoking and tobacco status: smoker, details unknown (Smokeless Tobacco) smokeless tobacco Smokeless tobacco user: chewing tobacco Alcohol intake: current Alcohol intake frequency: 0-2 Drinks per Day Alcohol type: beer Adopted: No Caregiver/support person: No Lives independently: No Household members: spouse Housing: House Marital status: Current occupational status: retired History of recent travel: No Current gender identity: Male Pertinent Exam Findings alert, oriented x 3, regular rate & rhythm and procedure specific exam findings (Abdominal examination nontender nondistended soft) Recommendations Surgery/Procedure today (Surveillance colonoscopy) Coding Level of Care Code Acute Welder Oxyhydrogen for Roberto Rooney
[2021-09-15 10:05] VITALS: BP 111/71; PULSE 54; RESP 18; TEMP 36.7; O2SAT 92
--- NOTE | 2021-09-15 12:22 | ANE.PACU2 ---
Inpatient post-anesthesia follow up: Airway intact: Yes Vital signs: Temperature 98.1 F Pulse Rate 54 Respiratory Rate 18 Blood Pressure 111/71 Pulse Oximetry 92 Oxygen Delivery Me thod Room Air Oxygen Flow Rate Fraction of Inspir ed Oxygen Hydration adequate: Yes Nausea and vomiting: No Pain level: 1 Mental status: Baseline
== END 2021-09-15 10:33 | disposition home or self-care (01) ==
PROVIDERS: PCP Emergency Medicine Emergency Medical Services; Visit Provider Surgery
PROC: 0DJD8ZZ Inspection of Lower Intestinal Tract, Via Natural or Artificial Opening Endoscopic (ICD-10-PCS; CPT 45378; principal; 2021-09-15 09:15)
DX: Z12.11 Encounter for screening for malignant neoplasm of colon (principal); Z86.010 Personal history of colon polyps; D12.2 Benign neoplasm of ascending colon; K57.30 Diverticulosis of large intestine without perforation or abscess without bleeding; F17.220 Nicotine dependence, chewing tobacco, uncomplicated; N40.1 Benign prostatic hyperplasia with lower urinary tract symptoms; N13.8 Other obstructive and reflux uropathy; I48.91 Unspecified atrial fibrillation
CPT/HCPCS: 45385; J2704; J7030

== ENCOUNTER 2021-10-14 08:00 | Outpatient (CLI) | payer OTHER, SELFPAY ==
--- NOTE | 2021-10-14 08:15 | US_ITS ---
WS: [id number] RENAL ULTRASOUND HISTORY: Microscopic Hematuria COMPARISON: None available. TECHNIQUE: 2-D and color Doppler imaging of the kidney submitted. Right kidney: 11.3 cm x 4.9 cm x 5.1 cm. Normal size kidney. Multiple cysts are identified. The largest cyst in the mid kidney measures 3.1 x 4.0 x 2.5 cm. No hydronephrosis or solid mass. Left kidney: 12.9 cm x 6.5 cm x 5.9 cm. Normal size kidney. No hydronephrosis or solid mass. No cystic masses. Aorta: Normal. Urinary Bladder: Normal distention. US/US renal BI* [id number] IMPRESSION: 1. Multiple RIGHT renal cysts. No hydronephrosis. 2. Negative LEFT kidney.
== END 2021-10-14 08:01 | disposition home or self-care (01) ==
LOC: RAD 08:04
PROVIDERS: PCP Emergency Medicine Emergency Medical Services; Visit Provider Urology
DX: R31.21 Asymptomatic microscopic hematuria (principal); Q61.02 Congenital multiple renal cysts
CPT/HCPCS: 76770; 81003

== ENCOUNTER → 2021-12-15 09:46 | Outpatient (BNVA) | payer OTHER, SELFPAY | PROVIDERS: PCP Emergency Medicine Emergency Medical Services; Visit Provider Internal Medicine Cardiovascular Disease | DX: I48.20 Chronic atrial fibrillation, unspecified (principal); I42.9 Cardiomyopathy, unspecified; I10 Essential (primary) hypertension; F17.220 Nicotine dependence, chewing tobacco, uncomplicated | CPT/HCPCS: 99214 ==

== ENCOUNTER → 2022-01-10 11:39 | Outpatient (BNVA) | payer OTHER, SELFPAY | PROVIDERS: PCP Emergency Medicine Emergency Medical Services; Visit Provider Internal Medicine Cardiovascular Disease | DX: I48.91 Unspecified atrial fibrillation (principal) | CPT/HCPCS: 93005 ==

== ENCOUNTER → 2022-06-22 09:38 | Outpatient (BNVA) | payer OTHER, SELFPAY | PROVIDERS: PCP Emergency Medicine Emergency Medical Services; Visit Provider Internal Medicine Cardiovascular Disease | DX: I48.91 Unspecified atrial fibrillation (principal); Z79.01 Long term (current) use of anticoagulants; I42.9 Cardiomyopathy, unspecified; Z79.899 Other long term (current) drug therapy; I10 Essential (primary) hypertension; F17.220 Nicotine dependence, chewing tobacco, uncomplicated | CPT/HCPCS: 99214 ==

== ENCOUNTER → 2023-01-04 11:03 | Outpatient (BNVA) | payer OTHER, SELFPAY | PROVIDERS: PCP Emergency Medicine Emergency Medical Services; Visit Provider Internal Medicine Cardiovascular Disease | DX: I48.91 Unspecified atrial fibrillation (principal); I10 Essential (primary) hypertension; R06.02 Shortness of breath; I42.9 Cardiomyopathy, unspecified; Z79.899 Other long term (current) drug therapy; Z79.01 Long term (current) use of anticoagulants; F17.220 Nicotine dependence, chewing tobacco, uncomplicated | CPT/HCPCS: 99214 ==

== ENCOUNTER → 2023-07-17 09:40 | Outpatient (BNVA) | payer OTHER, SELFPAY | PROVIDERS: PCP Emergency Medicine Emergency Medical Services; Visit Provider Internal Medicine Cardiovascular Disease | DX: I48.11 Longstanding persistent atrial fibrillation (principal); Z79.01 Long term (current) use of anticoagulants; I10 Essential (primary) hypertension; I42.9 Cardiomyopathy, unspecified; E78.5 Hyperlipidemia, unspecified; F17.220 Nicotine dependence, chewing tobacco, uncomplicated | CPT/HCPCS: 99214 ==

== ENCOUNTER → 2024-01-15 10:36 | Outpatient (BNVA) | payer OTHER, SELFPAY | PROVIDERS: PCP Emergency Medicine Emergency Medical Services; Visit Provider Internal Medicine Cardiovascular Disease | DX: I48.11 Longstanding persistent atrial fibrillation (principal); I42.9 Cardiomyopathy, unspecified; I10 Essential (primary) hypertension; E78.5 Hyperlipidemia, unspecified; Z79.01 Long term (current) use of anticoagulants; Z72.0 Tobacco use | CPT/HCPCS: 99214 ==

== ENCOUNTER → 2024-04-16 11:39 | Outpatient (BNVA) | payer MEDICARE, SELFPAY | PROVIDERS: PCP Emergency Medicine Emergency Medical Services; Visit Provider Registered Nurse | DX: T14.8XXA Other injury of unspecified body region, initial encounter (principal); W54.0XXA Bitten by dog, initial encounter | CPT/HCPCS: 87070; 87075; 87205 ==

== ENCOUNTER → 2024-07-18 08:49 | Outpatient (BNVA) | payer OTHER, MEDICARE, SELFPAY | PROVIDERS: PCP Emergency Medicine Emergency Medical Services; Visit Provider Nurse Practitioner Family | DX: I48.11 Longstanding persistent atrial fibrillation (principal); I42.9 Cardiomyopathy, unspecified; I10 Essential (primary) hypertension; E78.5 Hyperlipidemia, unspecified; Z79.01 Long term (current) use of anticoagulants; Z87.891 Personal history of nicotine dependence | CPT/HCPCS: 99213 ==

== ENCOUNTER 2024-08-12 06:47 | Outpatient (CLI) | payer OTHER, SELFPAY ==
--- NOTE | 2024-08-12 07:00 | USCV_ITS ---
Hilary Cabrera Age: 68 Gender: M : 1955 Exam Date: 08/12/2024 06:57 Ordering Phys: La Rincon NP Technologist: Exam Location: [facility] [place] Indication: BP: 130 / 75 HR: 106 Rhythm: Sinus Technical Quality: Adequate MEASUREMENTS (Male / Female) Normal Values 2D ECHO LV Diastolic Diameter PLAX 5.1 cm 4.2 - 5.9 / 3.9 - 5.3 cm IVS Diastolic Thickness 1.1 cm 0.6 - 1.0 / 0.6 - 0.9 cm IVS Systolic Thickness 1.6 cm LVPW Diastolic Thickness 1.2 cm 0.6 - 1.0 / 0.6 - 0.9 cm LVPW Systolic Thickness 1.5 cm LVOT Diameter 2.0 cm LV Ejection Fraction 2D Teich 60.5 % LV Ejection Fraction MOD 4C 64.3 % LV Ejection Fraction MOD 2C 68.6 % LV Ejection Fraction 2C AL 68.7 % LA Diameter 4.6 cm RA Systolic Volume 4C AL 48.8 ml RA Systolic Volume 4C MOD 47.4 ml LA Sys Volume AL 67.4 cm cubed LA Sys Volume Index AL 32.4 cm cubed/m squared Aorta at Sinotubular Diameter 3.1 cm M-MODE LA Ao Ratio MM 1.5 AV Cusp Separation MM 1.9 cm DOPPLER AV Peak Velocity 122.0 cm/s LVOT Peak Velocity 78.0 cm/s AV Area Cont Eq vti 2.6 cm squared AV Area Cont Eq pk 2.1 cm squared MV Peak Velocity 99.0 cm/s MV Area PHT 4.3 cm squared Mitral E to A Ratio 2.7 TV Peak Velocity 192.5 cm/s TR Peak Velocity 240.0 cm/s TR Peak Gradient 23.0 mmHg TV Peak E Velocity 70.0 cm/s PV Peak Velocity 104.0 cm/s FINDINGS Left Ventricle Normal LV size ejection fraction of 64%.no regional wall motion abnormalities. Right Ventricle The right ventricle is normal in size and function. Right Atrium Mildly increased right atrial size. Left Atrium Mildly increased left atrial size. Mitral Valve Thickened mitral valve. Mild to moderate mitral valve regurgitation. Aortic Valve No gross abnormalities noted Tricuspid Valve Trace tricuspid valve regurgitation. Pulmonic Valve No gross abnormalities noted Pericardium No pericardial effusion. Aorta Normal aortic annulus size. IVC Inferior vena cava not visualized. CONCLUSIONS Normal LV size ejection fraction of 64%.no regional wall motion abnormalities. Mild biatrial enlargementThickened mitral valve. Mild to moderate mitral valve regurgitation. Trace tricuspid valve regurgitation. Estimated pulmonary artery peak systolic pressure within normal limit There is no pericardial effusion. There are no intracardiac masses. Compared to the previous study from 07/10/2019, there is improvement in the LV ejection fraction from 45 - 50% to 64% Dr Ilya Craven MD [facility] (Electronically Signed) Final Date: 12 August 2024 10:11 S
== END 2024-08-12 06:48 | disposition home or self-care (01) ==
PROVIDERS: PCP Emergency Medicine Emergency Medical Services; Visit Provider Nurse Practitioner Family
DX: I42.9 Cardiomyopathy, unspecified (principal); I51.7 Cardiomegaly; I34.0 Nonrheumatic mitral (valve) insufficiency
CPT/HCPCS: 93306

== ENCOUNTER → 2024-09-17 14:17 | Outpatient (BNVA) | payer OTHER, SELFPAY | PROVIDERS: PCP Emergency Medicine Emergency Medical Services; Referring Provider Nurse Practitioner Family; Visit Provider Surgery | DX: Z12.11 Encounter for screening for malignant neoplasm of colon (principal) | CPT/HCPCS: 99204 ==

== ENCOUNTER 2024-10-03 06:26 | Day surgery (SDC) | payer OTHER, SELFPAY ==
--- NOTE | 2024-10-03 06:09 | W.PM.OPSUD ---
Surgery/Procedure H&P Update DATE OF PROCEDURE: October 03, 2024 DATE H&P PERFORMED: 09/17/24 H&P UPDATE INFORMATION: I have reviewed H&P completed within last 30 days, I have examined patient prior to procedure, No changes to prior documentation, Changes to prior documentation as noted here and Risks and benefits of the procedure reviewed PLANNED PROCEDURE: Operation Date: 10/03/24 07:40 Proposed Procedures p Colonoscopy 71303 G0105 Z12.11(Not Applicable) - Giacomo Guerrero MD
[2024-10-03 06:47] VITALS: BP 104/65; PULSE 68; RESP 17; TEMP 36.2; O2SAT 95; BMI 27.2
[2024-10-03] MEDS: sodium chloride 0.9% 1,000 ML 15 ML IV (06:55)
--- NOTE | 2024-10-03 07:01 | ANES.PREANE2 ---
Pre-Anesthetic Assessment Height/Weight: Height 1.78 m Weight 86.183 kg Temp Pulse Resp BP Pulse Ox O2 Del Method 97.1 F L 68 17 104/65 95 Room Air 10/03/24 06:47 10/03/24 06:47 10/03/24 06:47 10/03/24 06:47 10/03/24 06:47 10/03/24 06:47 Preop Diagnosis: + occult blood test. History of polyps Operation Date: 10/03/24 07:40 Proposed Procedures p Colonoscopy [id number] G0105 Z12.11(Not Applicable) - Giacomo Guerrero MD Familial anesthetic complications: none Was Beta Nickie taken within 24 hours: Yes Was Clonidine taken within 24 hours: N/A Last intake: Intake Last Liquid Date 10/02/24 Last Liquid Time 21:00 Last Solid Date 10/01/24 Last Solid Time 19:00 Social Tobacco (chews) Exam alert, oriented x 3 and clear to auscultation bilaterally irregular rhythm, regular rate Airway Cervical ROM: within normal limits Mallampati: Class II Dentition: full Pulmonary None reported CV/HEM Arrythmia and Hypertension Echo in August, EF 64% None reported Hepatic None reported GI None reported Metabolic Hyperlipidemia [facility] [place] None reported Neuropsych None reported Anesthetic Plan ASA status: 3 Anesthesia: MAC Other: Eliquis last dose Monday Risk of > 500 ml blood loss (7ml/kg in children): No Medications/Allergies Home Medications ?Medication ?Instructions ?Recorded ?Confirmed ?Last Taken ?Type diltiazem HCl 300 mg capsule,24 300 mg PO DAILY #30 caps 03/23/20 10/03/24 10/02/24 Rx hr,extended release hydrochlorothiazide 25 mg tablet 25 mg PO QAM #90 tabs 03/23/20 10/03/24 10/03/24 Rx losartan 100 mg tablet 100 mg PO QDAY #90 tabs 03/23/20 10/03/24 10/02/24 Rx tamsulosin 0.4 mg capsule 0.4 mg PO BID 10/14/21 10/03/24 10/02/24 History metoprolol succinate 50 mg capsule 50 mg PO DAILY #90 ea 02/11/22 10/03/24 10/03/24 Rx sprinkle, ext. release 24 hr propafenone 225 mg tablet 225 mg PO Q8H #270 tabs 03/30/22 10/03/24 10/03/24 Rx cholecalciferol (vitamin D3) 25 25 mcg PO DAILY 01/04/23 10/03/24 10/02/24 History mcg (1,000 unit) capsule apixaban 5 mg tablet (Eliquis) 5 mg PO BID #180 tabs 01/15/24 10/03/24 09/30/24 Rx rosuvastatin 5 mg tablet 5 mg PO DAILY #90 tabs 01/15/24 10/03/24 10/02/24 Rx Allergies Allergy/AdvReac Type Severity Reaction Status Date / Time No Known Allergies Allergy Verified 09/30/24 08:47 Current Medications Generic Name Dose Route Start Last Admin Trade Name Freq PRN Reason Stop Dose Admin Sodium Chloride 1,000 mls @ 15 mls/hr 10/03/24 06:32 10/03/24 06:55 Sodium Chloride 0.9% IV 10/04/24 06:31 15 mls/hr .Q24H PRN Administration COLONOSCOPY FLUIDS PFSH Anesthesia Medical History Colon polyp High risk medication use Atrial fibrillation with rapid ventricular response Shortness of breath Fatigue Cardiomyopathy Hematuria BPH with obstruction/lower urinary tract symptoms Primary hypertension Asymptomatic microscopic hematuria Stricture of urethral meatus in male Atrial fibrillation Surgical History History of bilateral carpal tunnel release History of cataract surgery Hx of tonsillectomy S/P wisdom tooth extraction Family History Mother , at age 89 Cancer Hypertension Postsurgical cardiac pacemaker in situ Father , at age 85 Cancer CAD (coronary artery disease) Sister Cancer Brother Cancer Denies family history of Diabetes Clotting disorder Dementia Hyperlipidemia Chronic kidney disease (CKD) Suicide Anesthesia complication Bleeding disorder Lung disease Stroke Social History Smoking and tobacco/nicotine status: former use of tobacco/nicotine Alcohol intake: current Alcohol intake frequency: 3 or more drinks per day Alcohol type: beer Substance/Drug Use: never Adopted: No Caregiver/support person: No Lives independently: No Household members: spouse Housing: House Marital status: Current occupational status: retired Current gender identity: Male Data Anesthesia Cardiac Studies: Echocardiogram 08/12/24 Echocardiogram Ultrasound 07/10/19 Sestamibi Stress Test (Cardiology) 07/18/19 Cardiac Event Monitor 02/10/22 Holter Monitor 01/29/20
[2024-10-03 07:41] VITALS: BP 90/61; PULSE 57; RESP 16; TEMP 36.2; O2SAT 94
[2024-10-03 07:50] VITALS: BP 81/58; PULSE 67; RESP 18; O2SAT 94
[2024-10-03 08:00] VITALS: BP 95/59; PULSE 64; RESP 18; O2SAT 98
--- NOTE | 2024-10-03 08:20 | ANE.PACU2 ---
Inpatient post-anesthesia follow up: Airway intact: Yes Vital signs: Temperature 97.1 F Pulse Rate 64 Respiratory Rate 18 Blood Pressure 95/59 Pulse Oximetry 98 Oxygen Delivery Me thod Room Air Oxygen Flow Rate Fraction of Inspir ed Oxygen Hydration adequate: Yes Nausea and vomiting: No Pain level: 1 Mental status: Baseline
== END 2024-10-03 08:20 | disposition home or self-care (01) ==
PROVIDERS: PCP Nurse Practitioner Family; Visit Provider Surgery
PROC: 0DJD8ZZ Inspection of Lower Intestinal Tract, Via Natural or Artificial Opening Endoscopic (ICD-10-PCS; CPT 45378; principal; 2024-10-03 07:40)
DX: Z12.11 Encounter for screening for malignant neoplasm of colon (principal); K57.30 Diverticulosis of large intestine without perforation or abscess without bleeding; D12.0 Benign neoplasm of cecum; D12.3 Benign neoplasm of transverse colon; K62.1 Rectal polyp; I10 Essential (primary) hypertension; E78.5 Hyperlipidemia, unspecified; F17.220 Nicotine dependence, chewing tobacco, uncomplicated; Z79.899 Other long term (current) drug therapy; Z79.01 Long term (current) use of anticoagulants; I48.91 Unspecified atrial fibrillation; Z86.0100 Personal history of colon polyps, unspecified; R19.5 Other fecal abnormalities
CPT/HCPCS: 45380; 45385; 88305; J2704; J7030; J9999

== ENCOUNTER 2024-10-08 16:03 | Inpatient (IN) | payer OTHER, SELFPAY ==
[2024-10-08] VITALS (9 sets, daily range): BP systolic 78–108; BP diastolic 52–78; PULSE 76–94; RESP 16–18; TEMP 36.7–36.9; O2SAT 91–98; BMI 25.4
--- NOTE | 2024-10-08 16:15 | ED_ITS ---
Documented by User: Aron Gonzalez DO 10/09/24 06:09 HPI - Abdominal Pain 2 General: Chief Complaint: Nausea/Vomiting/Diarrhea Stated Complaint: n/v/d, 5 days post colonoscopy Time Seen by Provider: 10/08/24 16:14 History of Present Illness: 68 yo male presents with n/v/d [address] colonoscopy. Patient has not been able to eat or drink for the last 5 days. He feels like he has had persistent nausea and vomiting and diarrhea he has not had any hematochezia melena hematemesis or coffee-ground emesis.He is also noted poor urine output. Denies any shortness of breath chest pain or specific abdominal pain or bloating. He denies any medic easy melena hematemesis coffee-ground emesis. Associated Symptoms: Denies chills, dysuria and fever(s) Related Data Home Medications ?Medication ?Instructions ?Recorded ?Confirmed tamsulosin 0.4 mg capsule 0.4 mg PO BID 10/14/2110/03 cholecalciferol (vitamin D3) 25 25 mcg PO DAILY 10/03/24 mcg (1,000 unit) capsule Previous Rx's ?Medication ?Instructions ?Recorded diltiazem HCl 300 mg capsule,24 300 mg PO DAILY #30 ca ps 03/23/20 hr,extended release hydrochlorothiazide 25 mg tablet 25 mg PO QAM #90 tabs 03/23/20 losartan 100 mg tablet 100 mg PO QDAY #90 tabs 03/04 07/22 metoprolol succinate 50 mg capsule 50 mg PO DAILY #90 ea 02/11/22 sprinkle, ext. release 24 hr propafenone 225 mg tablet 225 mg PO Q8H #270 tabs 03/04 02/21 apixaban 5 mg tablet (Eliquis) 5 mg PO BID #180 tabs 0 01/15/24 Held on 10/03/24. Instructions: Resume on 09/18/21. rosuvastatin 5 mg tablet 5 mg PO DAILY #90 tabs 01/14 Allergies Allergy/AdvReac Type Severity Reaction Status Date / Time No Known Allergies Allergy Verified 09/30/24 08:47 Review of Systems 2 Const: Denies: fever(s) or chills Card: Denies: chest pain Resp: Denies: dyspnea GI: Denies: abdominal pain : Denies: dysuria, urinary frequency or urinary urgency Musc: Denies: neck pain or back pain Skin/Breast: Denies: rash PFSH ED 2 PFSH: Medical History Colon polyp High risk medication use Atrial fibrillation with rapid ventricular response Shortness of breath Fatigue Cardiomyopathy Hematuria BPH with obstruction/lower urinary tract symptoms Primary hypertension Asymptomatic microscopic hematuria Stricture of urethral meatus in male Atrial fibrillation Surgical History History of bilateral carpal tunnel release History of cataract surgery Hx of tonsillectomy S/P wisdom tooth extraction Family History Mother , at age 89 Cancer Hypertension Postsurgical cardiac pacemaker in situ Father , at age 85 Cancer CAD (coronary artery disease) Sister Cancer Brother Cancer Denies family history of Diabetes Clotting disorder Dementia Hyperlipidemia Chronic kidney disease (CKD) Suicide Anesthesia complication Bleeding disorder Lung disease Stroke Social History Smoking and tobacco/nicotine status: former use of tobacco/nicotine Alcohol intake: current Alcohol intake frequency: 3 or more drinks per day Alcohol type: beer Substance/Drug Use: never Adopted: No Caregiver/support person: No Lives independently: No Household members: spouse Housing: House Marital status: Current occupational status: retired Current gender identity: Male Physical Exam 2 Const: GENERAL APPEARANCE: cooperative ORIENTATION/CONSCIOUSNESS: Yes awake, Yes oriented to person, Yes oriented to place and Yes oriented to time HENMT: COMMON NORMALS: normocephalic, atraumatic and hearing grossly normal bilaterally HEAD & SCALP: normocephalic and atraumatic Resp: COMMON NORMALS: normal respiratory effort, No retractions, No use of accessory muscles and clear to auscultation bilaterally AUSCULTATION: clear to auscultation bilaterally Cardio: COMMON NORMALS: regular rate, regular rhythm and No murmurs present (Cardio) RATE: regular rate RHYTHM: regular rhythm GI: COMMON NORMALS: Soft to palpation and No hepatosplenomegaly present A USCULTATION: Yes normoactive bowel sounds PALPATION: Yes Soft to palpation, No Tenderness to palpation present (GI), No Guarding due to palpation present (GI) and Yes No hepatosplenomegaly present Extremity: COMMON NORMALS: normal to inspection, capillary refill normal, no clubbing, cyanosis or edema, no calf tenderness and no pedal edema Neuro: SENSORIUM/ORIENTATION: Yes oriented to person, Yes oriented to place and Yes oriented to time Skin: COMMON NORMALS: no rashes or lesions noted GENERAL SKIN EXAM: no rashes or lesions noted Course 2 Vital Signs: Vital signs: Vital Signs Temperature 97.7 F 10/09/24 04:21 Pulse Rate 90 10/09/24 04:21 Respiratory Rate 16 10/09/24 04:21 Blood Pressure 104/72 10/09/24 04:21 Pulse Oximetry 96 10/09/24 04:21 Oxygen Delivery Me thod Nasal Cannula 10/08/24 23:05 Oxygen Flow Rate 2 10/08/24 23:05 MDM - Abdominal Pain Medical Decision Making Patient has acute renal failure labs are pending. Care signed out to Dr. Gaytan at change of shift. See final notes for diagnosis and disposition. Care transferred over myself at shift change, lab work was reviewed as well as abdominal pelvic CT scan with contrast, patient is in acute renal failure. Dr. Montes was consulted who accepted the patient to [facility] [place] for further evaluation treatment and IV fluids. Medical Records I reviewed the patient's medical records. Lab Data I reviewed the patient's lab results. 10/08/24 14:40 10/09/24 04:15 Labs/Radiology: Radiology Impressions Abdomen/Pelvis CT 10/08/24 16:55 IMPRESSION: 1. Colonic diverticulosis with minimal adjacent fat stranding within left lower quadrant, concerning for early developing acute diverticulitis. 2. Nonobstructing right nephrolithiasis. 3. Sequela of prior healed granulomatous disease within liver and spleen. COMMENTS: Consistent with the [employer]'s Incidental Findings Committee white paper (J Am Mane Radiol 2018): Any incidental renal lesion less than 1 cm or classified as too small to characterize, or any incidental cystic renal lesion characterized as simple-appearing, is likely benign. No follow-up imaging is recommended for these lesions per consensus recommendations based on imaging criteria. Laboratory Results WBC 8.89 10^3/uL (3.29-11.43) 10/08/24 14:40 RBC 4.88 10^6/uL (3.85-5.65) 10/08/24 14:40 Hgb 15.60 g/dL (11.27-16.99) 10/08/24 14:40 Hct 45.5 % (37-53) 10/08/24 14:40 MCV 93.2 fl (82-101) 10/08/24 14:40 MCH 32.0 pg (27-33) 10/08/24 14:40 MCHC 34.3 g/dL (30-55) 10/08/24 14:40 RDW 13.2 % (12.1-15.1) 10/08/24 14:40 Plt Count 180 10^3/cmm (157-399) 10/08/24 14:40 MPV 11.2 fL (7.4-10.4) H 10/08/24 14:40 Neut % (Auto) 73.3 % 10/08/24 14:40 Lymph % (Auto) 14.7 % 10/08/24 14:40 Hawkins % (Auto) 10.6 % 10/08/24 14:40 Eos % (Auto) 0.8 % 10/08/24 14:40 Baso % (Auto) 0.3 % 10/08/24 14:40 Neut # (Auto) 6.51 10^3/uL (1.8-7.7) 10/08/24 14:40 Lymph # (Auto) 1.3 10^3/uL (0.8-4.8) 10/08/24 14:40 Hawkins # (Auto) 0.9 10^3/uL (0.2-0.9) 10/08/24 14:40 Eos # (Auto) 0.1 10^3/uL (0.0-0.8) 10/08/24 14:40 Baso # (Auto) 0.0 10^3/uL (0.0-0.1) 10/08/24 14:40 Nucleated RBC % (auto) 0 % 10/08/24 14:40 Nucleated RBCs # 0.0 /100WBC 10/08/24 14:40 Sodium 132 mmol/L (136-145) L 10/08/24 14:40 Potassium 3.5 mmol/L (3.5-5.1) 10/08/24 14:40 Chloride 95 mmol/L (98-107) L 10/08/24 14:40 Carbon Dioxide 22 mmol/L (22-29) 10/08/24 14:40 Anion Gap 18.5 (5-19) 10/08/24 14:40 BUN 61 mg/dL (8-23) H 10/08/24 14:40 Creatinine 4.5 mg/dL (0.7-1.2) H 10/08/24 14:40 GFR Calculation 13.1 mL/min (90-130) L 10/08/24 14:40 Glucose 138 mg/dL (65-115) H 10/08/24 14:40 Calculated Osmolality 293 mOsm/kg (285-295) 10/08/24 14:40 Calcium 9.0 mg/dL (8.5-10.5) 10/08/24 14:40 Total Bilirubin 1.1 mg/dL (0.15-1.2) 10/08/24 14:40 AST 22 U/L (0-40) 10/08/24 14:40 ALT 21 U/L (0-41) 10/08/24 14:40 Alkaline Phosphatase 97 U/L (40-130) 10/08/24 14:40 Total Protein 6.5 g/dL (6.6-8.7) L 10/08/24 14:40 Albumin 4.0 g/dL (3.5-5.2) 10/08/24 14:40 Globulin 2.5 g/dL (1.3-4.6) 10/08/24 14:40 Lipase 97 U/L (13-60) H 10/08/24 14:40 Urine Color Yellow (Yellow) 10/08/24 16:44 Urine Appearance Slightly cloudy (CLEAR) 10/08/24 16:44 Urine pH 5 (5-7) 10/08/24 16:44 Ur Specific [place] 1.020 (1.005-1.030) 10/08/24 16:44 Urine Protein 1+ (Negative) A 10/08/24 16:44 Urine Glucose (UA) Norm (Normal) 10/08/24 16:44 Urine Ketones Negative (Negative) 10/08/24 16:44 Urine Blood 2+ (Negative) A 10/08/24 16:44 Urine Nitrate Negative (Negative) 10/08/24 16:44 Urine Bilirubin 1+ (Negative) H 10/08/24 16:44 Urine Urobilinogen Norm mg/dL (Negative) 10/08/24 16:44 Ur Leukocyte Esterase Negative (Negative) 10/08/24 16:44 Urine RBC 0-2 /hpf (0-2) 10/08/24 16:44 Urine WBC 0-5 /hpf (0-5) 10/08/24 16:44 Ur Squamous Epith Cells 11-20 /hpf (0-5) H 10/08/24 16:44 Amorphous Sediment Not Reportable 10/08/24 16:44 Urine Bacteria None seen /hpf (NONE) 10/08/24 16:44 Hyaline Casts 132.82 /lpf 10/08/24 16:44 Fine Granular Casts 5-10 /lpf H 10/08/24 16:44 Discharge Plan Discharge Patient Disposition: Admitted As Inpatient Admit Provider: Akanksha Montes Clinical Impression: Gastroenteritis Acute renal failure Qualifiers: Acute renal failure type: unspecified Qualified Code(s): N17.9 - Acute kidney failure, unspecified Condition: Stable Coding Level of Care Code ED Mineralogy Professor for Chg Fwd Documented by User: Luis M Gaytan DO 10/09/24 01:30 HPI - Abdominal Pain 2 General: Chief Complaint: Nausea/Vomiting/Diarrhea Stated Complaint: n/v/d, 5 days post colonoscopy Time Seen by Provider: 10/08/24 16:14 Related Data Home Medications ?Medication ?Instructions ?Recorded ?Confirmed tamsulosin 0.4 mg capsule 0.4 mg PO BID 10/14/2110/03 cholecalciferol (vitamin D3) 25 25 mcg PO DAILY 10/03/24 mcg (1,000 unit) capsule Previous Rx's ?Medication ?Instructions ?Recorded diltiazem HCl 300 mg capsule,24 300 mg PO DAILY #30 ca ps 03/23/20 hr,extended release hydrochlorothiazide 25 mg tablet 25 mg PO QAM #90 tabs 03/23/20 losartan 100 mg tablet 100 mg PO QDAY #90 tabs 03/04 07/22 metoprolol succinate 50 mg capsule 50 mg PO DAILY #90 ea 02/11/22 julien, ext. release 24 hr propafenone 225 mg tablet 225 mg PO Q8H #270 tabs 03/04 02/21 apixaban 5 mg tablet (Eliquis) 5 mg PO BID #180 tabs 0 01/15/24 Held on 10/03/24. Instructions: Resume on 09/18/21. rosuvastatin 5 mg tablet 5 mg PO DAILY #90 tabs 01/14 Allergies Allergy/AdvReac Type Severity Reaction Status Date / Time No Known Allergies Allergy Verified 09/30/24 08:47 PFS ED 2 PFSH: Medical History Colon polyp High risk medication use Atrial fibrillation with rapid ventricular response Shortness of breath Fatigue Cardiomyopathy Hematuria BPH with obstruction/lower urinary tract symptoms Primary hypertension Asymptomatic microscopic hematuria Stricture of urethral meatus in male Atrial fibrillation Surgical History History of bilateral carpal tunnel release History of cataract surgery Hx of tonsillectomy S/P wisdom tooth extraction Family History Mother , at age 89 Cancer Hypertension Postsurgical cardiac pacemaker in situ Father , at age 85 Cancer CAD (coronary artery disease) Sister Cancer Brother Cancer Denies family history of Diabetes Clotting disorder Dementia Hyperlipidemia Chronic kidney disease (CKD) Suicide Anesthesia complication Bleeding disorder Lung disease Stroke Social History Smoking and tobacco/nicotine status: former use of tobacco/nicotine Alcohol intake: current Alcohol intake frequency: 3 or more drinks per day Alcohol type: beer Substance/Drug Use: never Adopted: No Caregiver/support person: No Lives independently: No Household members: spouse Housing: House Marital status: Current occupational status: retired Current gender identity: Male Course 2 Vital Signs: Vital signs: Vital Signs Temperature 97.7 F 10/09/24 04:21 Pulse Rate 90 10/09/24 04:21 Respiratory Rate 16 10/09/24 04:21 Blood Pressure 104/72 10/09/24 04:21 Pulse Oximetry 96 10/09/24 04:21 Oxygen Delivery Me thod Nasal Cannula 10/08/24 23:05 Oxygen Flow Rate 2 10/08/24 23:05 MDM - Abdominal Pain Medical Decision Making Care transferred over myself at shift change, lab work was reviewed as well as abdominal pelvic CT scan with contrast, patient is in acute renal failure. Dr. Montes was consulted who accepted the patient to [facility] [place] for further evaluation treatment and IV fluids. Lab Data 10/08/24 14:40 10/09/24 04:15 Labs/Radiology: Radiology Impressions Abdomen/Pelvis CT 10/08/24 16:55 IMPRESSION: 1. Colonic diverticulosis with minimal adjacent fat stranding within left lower quadrant, concerning for early developing acute diverticulitis. 2. Nonobstructing right nephrolithiasis. 3. Sequela of prior healed granulomatous disease within liver and spleen. COMMENTS: Consistent with the [employer]'s Incidental Findings Committee white paper (J Am Mane Radiol 2018): Any incidental renal lesion less than 1 cm or classified as too small to characterize, or any incidental cystic renal lesion characterized as simple-appearing, is likely benign. No follow-up imaging is recommended for these lesions per consensus recommendations based on imaging criteria. Laboratory Results WBC 8.89 10^3/uL (3.29-11.43) 10/08/24 14:40 RBC 4.88 10^6/uL (3.85-5.65) 10/08/24 14:40 Hgb 15.60 g/dL (11.27-16.99) 10/08/24 14:40 Hct 45.5 % (37-53) 10/08/24 14:40 MCV 93.2 fl (82-101) 10/08/24 14:40 MCH 32.0 pg (27-33) 10/08/24 14:40 MCHC 34.3 g/dL (30-55) 10/08/24 14:40 RDW 13.2 % (12.1-15.1) 10/08/24 14:40 Plt Count 180 10^3/cmm (157-399) 10/08/24 14:40 MPV 11.2 fL (7.4-10.4) H 10/08/24 14:40 Neut % (Auto) 73.3 % 10/08/24 14:40 Lymph % (Auto) 14.7 % 10/08/24 14:40 Hawkins % (Auto) 10.6 % 10/08/24 14:40 Eos % (Auto) 0.8 % 10/08/24 14:40 Baso % (Auto) 0.3 % 10/08/24 14:40 Neut # (Auto) 6.51 10^3/uL (1.8-7.7) 10/08/24 14:40 Lymph # (Auto) 1.3 10^3/uL (0.8-4.8) 10/08/24 14:40 Hawkins # (Auto) 0.9 10^3/uL (0.2-0.9) 10/08/24 14:40 Eos # (Auto) 0.1 10^3/uL (0.0-0.8) 10/08/24 14:40 Baso # (Auto) 0.0 10^3/uL (0.0-0.1) 10/08/24 14:40 Nucleated RBC % (auto) 0 % 10/08/24 14:40 Nucleated RBCs # 0.0 /100WBC 10/08/24 14:40 Sodium 132 mmol/L (136-145) L 10/08/24 14:40 Potassium 3.5 mmol/L (3.5-5.1) 10/08/24 14:40 Chloride 95 mmol/L (98-107) L 10/08/24 14:40 Carbon Dioxide 22 mmol/L (22-29) 10/08/24 14:40 Anion Gap 18.5 (5-19) 10/08/24 14:40 BUN 61 mg/dL (8-23) H 10/08/24 14:40 Creatinine 4.5 mg/dL (0.7-1.2) H 10/08/24 14:40 GFR Calculation 13.1 mL/min (90-130) L 10/08/24 14:40 Glucose 138 mg/dL (65-115) H 10/08/24 14:40 Calculated Osmolality 293 mOsm/kg (285-295) 10/08/24 14:40 Calcium 9.0 mg/dL (8.5-10.5) 10/08/24 14:40 Total Bilirubin 1.1 mg/dL (0.15-1.2) 10/08/24 14:40 AST 22 U/L (0-40) 10/08/24 14:40 ALT 21 U/L (0-41) 10/08/24 14:40 Alkaline Phosphatase 97 U/L (40-130) 10/08/24 14:40 Total Protein 6.5 g/dL (6.6-8.7) L 10/08/24 14:40 Albumin 4.0 g/dL (3.5-5.2) 10/08/24 14:40 Globulin 2.5 g/dL (1.3-4.6) 10/08/24 14:40 Lipase 97 U/L (13-60) H 10/08/24 14:40 Urine Color Yellow (Yellow) 10/08/24 16:44 Urine Appearance Slightly cloudy (CLEAR) 10/08/24 16:44 Urine pH 5 (5-7) 10/08/24 16:44 Ur Specific [place] 1.020 (1.005-1.030) 10/08/24 16:44 Urine Protein 1+ (Negative) A 10/08/24 16:44 Urine Glucose (UA) Norm (Normal) 10/08/24 16:44 Urine Ketones Negative (Negative) 10/08/24 16:44 Urine Blood 2+ (Negative) A 10/08/24 16:44 Urine Nitrate Negative (Negative) 10/08/24 16:44 Urine Bilirubin 1+ (Negative) H 10/08/24 16:44 Urine Urobilinogen Norm mg/dL (Negative) 10/08/24 16:44 Ur Leukocyte Esterase Negative (Negative) 10/08/24 16:44 Urine RBC 0-2 /hpf (0-2) 10/08/24 16:44 Urine WBC 0-5 /hpf (0-5) 10/08/24 16:44 Ur Squamous Epith Cells 11-20 /hpf (0-5) H 10/08/24 16:44 Amorphous Sediment Not Reportable 10/08/24 16:44 Urine Bacteria None seen /hpf (NONE) 10/08/24 16:44 Hyaline Casts 132.82 /lpf 10/08/24 16:44 Fine Granular Casts 5-10 /lpf H 10/08/24 16:44 All radiology interpretation(s) finalized by discharge Discharge Plan Discharge Patient Disposition: Admitted As Inpatient Admit Provider: Akanksha Montes Clinical Impression: Gastroenteritis Acute renal failure Qualifiers: Acute renal failure type: unspecified Qualified Code(s): N17.9 - Acute kidney failure, unspecified Condition: Stable Coding Level of Care Code ED Mineralogy Professor for Roberto Rooney
[2024-10-08 16:49] LABS: Basophils % 0.3 %; Eosinophils # 0.1 10^3/uL (0.0-0.8); Eosinophils % 0.8 %; Hematocrit 45.5 % (37-53); Lymphocytes # 1.3 10^3/uL (0.8-4.8); Lymphocytes % 14.7 %; Mean Corpuscular HGB Conc 34.3 g/dL (30-55); Mean Corpuscular Volume 93.2 fl (82-101); Mean Platelet Volume 11.2 fL (7.4-10.4); Monocytes # 0.9 10^3/uL (0.2-0.9); Monocytes % 10.6 %; Neutrophils # 6.51 10^3/uL (1.8-7.7); Neutrophils % 73.3 %; Nucleated Red Blood Cells % 0 %; Platelet Count 180 10^3/cmm (157-399); Red Blood Count 4.88 10^6/uL (3.85-5.65); Red Cell Distribution Width 13.2 % (12.1-15.1); White Blood Count 8.89 10^3/uL (3.29-11.43)
--- NOTE | 2024-10-08 16:55 | CTR_ITS ---
PROCEDURE INFORMATION: Exam: CT Abdomen And Pelvis Without Contrast Exam date and time: 10/08/2024 5:34 PM Age: 68 years old Clinical indication: Abdominal pain; Acute; Prior surgery; Surgery date: 6+ months; Surgery type: Ing hernia; Additional info: Abd pain TECHNIQUE: Imaging protocol: Computed tomography of the abdomen and pelvis without contrast. Radiation optimization: All CT scans at this facility use at least one of these dose optimization techniques: automated exposure control; mA and/or kV adjustment per patient size (includes targeted exams where dose is matched to clinical indication); or iterative reconstruction. COMPARISON: US renal BI* [id number] 10/14/2021 8:15 AM RADIATION DOSE METRICS: Total DLP (mGy-cm): 644.63 FINDINGS: Lungs: Unremarkable. Liver: Punctate calcified granulomas within the liver. Gallbladder and biliary ducts: Gallbladder is distended. Pancreas: Normal. No ductal dilation. Spleen: Punctate calcified granulomas within the spleen. Adrenal glands: Normal. No mass. Kidneys and ureters: Mildly atrophic appearance of bilateral kidneys. Extrarenal pelvis on the right. No hydronephrosis or obstructing calculi bilaterally. Punctate nonobstructing calculus within lower pole of right kidney. Subcentimeter bilateral renal hypodensities. These are not completely characterized but are likely benign cysts. In the absence of risk factors, no further workup is recommended. Stomach and bowel: Colonic diverticulosis with very mild fat stranding within left lower quadrant (3/165). Appendix: No evidence of appendicitis. Intraperitoneal space: Unremarkable. No free air. No significant fluid collection. Vasculature: Unremarkable. No abdominal aortic aneurysm. Lymph nodes: Unremarkable. No enlarged lymph nodes. Urinary bladder: Urinary bladder is underdistended, limiting the evaluation. Reproductive: Unremarkable as visualized. Bones/joints: Unremarkable. No acute fracture. Soft tissues: Trace fat containing right inguinal hernia. Other findings: . CT/CT kidney stone [id number] IMPRESSION: 1. Colonic diverticulosis with minimal adjacent fat stranding within left lower quadrant, concerning for early developing acute diverticulitis. 2. Nonobstructing right nephrolithiasis. 3. Sequela of prior healed granulomatous disease within liver and spleen. COMMENTS: Consistent with the [place] [employer]'s Incidental Findings Committee white paper (J Am Mane Radiol 2018): Any incidental renal lesion less than 1 cm or classified as too small to characterize, or any incidental cystic renal lesion characterized as simple-appearing, is likely benign. No follow-up imaging is recommended for these lesions per consensus recommendations based on imaging criteria.
--- NOTE | 2024-10-08 17:04 | ECG_ITS ---
[facility] Test Date: 2024-10-08 Pat Name: Hilary Cabrera Department: Room: Gender: Male Machine I Coremaker: : 1955 Requested By: Aron Last Order Number: [id number] Kira MD: Ilya Craven M.D. Measurements Intervals [place] Rate: 75 P: 0 NM: 0 QRS: 51 QRSD: 121 T: -1 QT: 399 QTc: 448 Interpretive Statements ATRIAL FIBRILLATION MODERATE INTRAVENTRICULAR CONDUCTION DELAY [110+ ms QRS DURATION] ABNORMAL RHYTHM ECG Compared to ECG 02/28/2020 10:38:04 Intraventricular conduction delay now present Sinus bradycardia no longer present T-wave abnormality no longer present Electronically Signed On 10-08-2024 18:46:32 CDT by Ilya Craven M.D. [email or web address]
[2024-10-08 17:09] LABS: Alanine Aminotransferase 21 U/L (0-41); Alkaline Phosphatase 97 U/L (40-130); Anion Gap 18.5 (5-19); Aspartate Amino Transferase 22 U/L (0-40); Blood Urea Nitrogen 61 mg/dL (8-23); Carbon Dioxide 22 mmol/L (22-29); Chloride 95 mmol/L (98-107); Creatinine Clr Calc Pharmacy 16.8699; Globulin 2.5 g/dL (1.3-4.6); Glomerular Filtration Rate 13.1 mL/min (90-130); Glucose 138 mg/dL (65-115); Lipase 97 U/L (13-60); Osmolality Calculated 293 mOsm/kg (285-295); Potassium 3.5 mmol/L (3.5-5.1); Sodium 132 mmol/L (136-145); Total Bilirubin 1.1 mg/dL (0.15-1.2); Total Protein 6.5 g/dL (6.6-8.7)
[2024-10-08 17:12] LABS: Bacteria Urine None Seen /hpf; Hyaline Casts Urine 132.82 /lpf; RBC Urine 0-2 /hpf (0-2); WBC Urine 0-5 /hpf (0-5)
[2024-10-08 17:44] LABS: Protein Urine 1+ (Negative); Urine Appearance Slightly Cloudy (CLEAR); Urine Color Yellow (Yellow); pH Urine 5 (5-7)
[2024-10-08 17:45] LABS: Add Urine Microscopic? YES; Bilirubin Urine 1+ (Negative); Blood Urine 2+ (Negative); Glucose Urine UA Norm (Normal); Ketones Urine Negative (Negative); Leukocyte Esterase Urine Negative (Negative); Nitrate Urine Negative (Negative); UA Slide Review UA Slide Review Perf; Urobilinogen Urine Norm (Negative)
[2024-10-08 17:46] LABS: Add Urine Culture? No
[2024-10-08] MEDS: sodium chloride 0.9% 1,000 ML 999 ML IV (18:41)
--- NOTE | 2024-10-08 19:59 | PM.HP ---
Providers/Chief Complaint Primary Care Provider: Socorro Ca APRN Chief Complaint: n/v/d, 5 days post colonoscopy History of Present Illness Hilary Cabrera is a 68 year old male who recently had a colonoscopy couple of polyps were removed, cecal polyp with tubular adenoma negative for high-grade dysplasia, transverse colon polyp is also tubular adenoma rectum polyp is benign lymphoid aggregate, patient has been experiencing loose stools because he has taken bowel prep, experienced couple episode of emesis in last 3 to 4 days, he has also taken his losartan and hydrochlorothiazide presented today for worsening of dehydration. In the ER workup is consistent with KATHY, he has been given IV fluids. He was able to make [address] abdomen pelvis showing diverticulosis nonobstructive nephrolithiasis. Patient is afebrile, hypertensive, blood pressure improving with IV fluids. No active emesis. Hospital service has been requested to admit the patient for acute renal failure secondary to dehydration. Patient also has hyponatremia, he looks hypovolemic Patient chews tobacco, drinks 3-4 beers every night. Review of Systems Const: Denies: fever(s) Eyes: Denies: change in vision ENMT: Denies: throat pain Resp: Denies: dyspnea GI: Denies: abdominal pain : Denies: flank pain Musc: Denies: neck pain Medications/Allergies Home Medications ?Medication ?Instructions ?Recorded ?Confirmed ?Last Taken ?Type diltiazem HCl 300 mg capsule,24 300 mg PO DAILY #30 caps 03/23/20 10/03/24 10/02/24 Rx hr,extended release hydrochlorothiazide 25 mg tablet 25 mg PO QAM #90 tabs 03/23/20 10/03/24 10/03/24 Rx losartan 100 mg tablet 100 mg PO QDAY #90 tabs 03/23/20 10/03/24 10/02/24 Rx tamsulosin 0.4 mg capsule 0.4 mg PO BID 10/14/21 10/03/24 10/02/24 History metoprolol succinate 50 mg capsule 50 mg PO DAILY #90 ea 02/11/22 10/03/24 10/03/24 Rx sprinkle, ext. release 24 hr propafenone 225 mg tablet 225 mg PO Q8H #270 tabs 03/30/22 10/03/24 10/03/24 Rx cholecalciferol (vitamin D3) 25 25 mcg PO DAILY 01/04/23 10/03/24 10/02/24 History mcg (1,000 unit) capsule apixaban 5 mg tablet (Eliquis) 5 mg PO BID #180 tabs 01/15/24 10/03/24 09/30/24 Rx Held on 10/03/24. Instructions: Resume on 09/18/21. rosuvastatin 5 mg tablet 5 mg PO DAILY #90 tabs 01/15/24 10/03/24 10/02/24 Rx Allergies Allergy/AdvReac Type Severity Reaction Status Date / Time No Known Allergies Allergy Verified 09/30/24 08:47 PFSH Acute PFSH: Medical History Colon polyp High risk medication use Atrial fibrillation with rapid ventricular response Shortness of breath Fatigue Cardiomyopathy Hematuria BPH with obstruction/lower urinary tract symptoms Primary hypertension Asymptomatic microscopic hematuria Stricture of urethral meatus in male Atrial fibrillation Surgical History History of bilateral carpal tunnel release History of cataract surgery Hx of tonsillectomy S/P wisdom tooth extraction Family History Mother , at age 89 Cancer Hypertension Postsurgical cardiac pacemaker in situ Father , at age 85 Cancer CAD (coronary artery disease) Sister Cancer Brother Cancer Denies family history of Diabetes Clotting disorder Dementia Hyperlipidemia Chronic kidney disease (CKD) Suicide Anesthesia complication Bleeding disorder Lung disease Stroke Social History Smoking and tobacco/nicotine status: former use of tobacco/nicotine Alcohol intake: current Alcohol intake frequency: 3 or more drinks per day Alcohol type: beer Substance/Drug Use: never Adopted: No Caregiver/support person: No Lives independently: No Household members: spouse Housing: House Marital status: Current occupational status: retired Current gender identity: Male Vitals/I&O/Wt Last Vital Signs Temp 98.4 F 10/08/24 16:23 Pulse 80 10/08/24 19:21 Resp 18 10/08/24 19:21 BP 91/60 10/08/24 19:21 Pulse Ox 95 10/08/24 19:21 O2 Del Method Room Air 10/08/24 19:21 Weight last 48 hrs Weight 80.286 kg Physical Exam Narrative: Awake and alert Signs of dehydration present Low blood pressure AO x 4 GCS 15 NIH 0 S1, S2 No audible stridor or wheezing Skin is flushed, suntanned Pleasant and cooperative Abdomen soft Data 10/08/24 14:40 10/08/24 14:40 A&P Assessment and plan (1) Primary hypertension: (2) Atrial fibrillation: Qualifiers: Atrial fibrillation type: longstanding persistent Qualified Code(s): I48.11 - Longstanding persistent atrial fibrillation (3) Gastroenteritis: (4) Diverticulosis large intestine w/o perforation or abscess w/bleeding: (5) Acute renal failure: Qualifiers: Acute renal failure type: unspecified Qualified Code(s): N17.9 - Acute kidney failure, unspecified Plan KATHY Secondary to nephrotoxic agents losartan hydrochlorothiazide and dehydration Patient has been having loose stools since his bowel prep, had couple of episode of emesis, total 3-4 Nonobstructive kidney stone No signs of UTI, Clinically patient looks extremely dehydrated Continue IV fluids overnight Monitor urine output correlate with creatinine Hold nephrotoxic agents Diarrhea related to bowel prep, diverticulosis evident on CT abdomen pelvis, tubular adenoma as per pathology report 3 polyps were removed, pathology report mentioned in the HPI A-fib without RVR Continue Eliquis If creatinine keeps worsening might have to reduce the dose Continue propafenone along Cardizem Hypotension: Currently hypotensive hold nephrotoxic agents Severe dehydration causing KATHY and hypotension: Continue IV fluids for next 12-16 hours, if he does not vomiting next 24 hours we might be able to advance his diet and discontinue IV fluids Full code Brat diet DVT prophylaxis covered with Eliquis PDMP PDMP Reviewed: Not Reviewed Attestations Medical Necessity Statement*: Patient is being admitted for management valuation of acute renal failure, hyponatremia and dehydration despite more than 2 midnights in the hospital Diagnoses Primary hypertension I10 Longstanding persistent atrial fibrillation I48.11 Atrial fibrillation type: longstanding persistent Gastroenteritis K52.9 Diverticulosis large intestine w/o perforation or abscess w/bleeding K57.31 Acute renal failure N17.9 Acute renal failure type: unspecified
[2024-10-08] MEDS: propafenone 150 mg Tablet 225 MG PO (21:10)
[2024-10-08] MEDS: sodium chloride 0.9% 1,000 ML 75 ML IV (21:11)
[2024-10-09] MEDS: propafenone 150 mg Tablet 225 MG PO ×3 (03:31→20:45)
[2024-10-09 04:21] VITALS: BP 104/72; PULSE 90; RESP 16; TEMP 36.5; O2SAT 96; BMI 25.4
[2024-10-09 06:05] LABS: Anion Gap 16.9 (5-19); Blood Urea Nitrogen 47 mg/dL (8-23); Calcium 8.6 mg/dL (8.5-10.5); Carbon Dioxide 23 mmol/L (22-29); Chloride 100 mmol/L (98-107); Creatinine Clr Calc Pharmacy 27.1123; Glomerular Filtration Rate 22.6 mL/min (90-130); Glucose 94 mg/dL (65-115); Magnesium 2.4 mg/dL (1.7-2.3); Osmolality Calculated 296 mOsm/kg (285-295); Sodium 137 mmol/L (136-145)
[2024-10-09 06:17] LABS: Potassium 2.9 mmol/L (3.5-5.1)
[2024-10-09 07:43] VITALS: BP 102/68; PULSE 87; RESP 16; TEMP 36.7; O2SAT 92
[2024-10-09 08:17] LABS: C Reactive Protein 26.7 mg/L (0.0-4.9)
[2024-10-09 08:24] LABS: Procalcitonin 0.35 ng/mL (0-0.5)
--- NOTE | 2024-10-09 09:13 | PC.NURSE ---
Morning meds are being administered by [facility] [place], Stephen, and his instructor, Janet.
--- NOTE | 2024-10-09 09:28 | PC.CHAP ---
Pastoral Care Encounter/Spiritual Assessment Type of Contact [] Declined cytology technologist visit [] Patient/Family/Request visit [] Outpatient visit [] Follow-up visit [] Physician referral [] Code/Alert [] Routine visit [] Staff referral [] Actively dying [x] Patient sleeping [] Family support [] [] Out of room [] Palliative care [] [] Receiving care in room [] Pre-surgical visit [] Trauma [] Long length of stay [] ICU visit [] Other: Relational/Emotional Strength [] Patient feels connected with others/family/visitors/staff [] Distress [] Loneliness/isolation [] Abandonment Spirituality of Patient [] Person of Rocio [] Attends Gnosticism of their Rocio [] Believes in Prayer [] Reads Bible or Sabianist materials [] There are Spiritual issues to be addressed Security Field Supervisor Interventions [] Prayer [] Active listening [] Non-anxious presence [] Spiritual/emotional support [] Crisis/trauma care [] Spiritual counseling [] Bereavement support [] Provided bereavement packet [] Provided Bible/devotional materials [] Provided toy/stuffed animal, coloring book to patient or family member [] Provided Communion [] Anointing/Burdine [] Salvation [] Completed spiritual assessment [] Other: Impact on Illness or Injury [] Angry [] Fearful [] Anxious [] Often cries [] Exhaustion [] Unable to work [] Unable to attend synagogue [] Unable to walk/stand [] Unable to read [] Unable to drive [] Unable to eat/drink [] Unable to sleep [] Unable to be with family [] Patient intubated [] Other: Summary Time spent with patient
[2024-10-09] MEDS: lidocaine 1% 5 ML in potassium chloride premix 100 ML 26.25 ML IV (09:42)
[2024-10-09] MEDS: sodium chloride 0.9% 1,000 ML 75 ML IV ×2 (09:47→22:37)
[2024-10-09] MEDS: tamsulosin 0.4 mg Capsule PO ×2 (10:07→16:58)
[2024-10-09] MEDS: dilTIAZem ER (24HR) 300 mg Capsule PO (10:07)
[2024-10-09] MEDS: apixaban 5 mg Tablet PO ×2 (10:07→16:58)
[2024-10-09] MEDS: pantoprazole 40 mg SDV IVP ×2 (10:23→16:58)
[2024-10-09] MEDS: metroNIDAZOLE IV 500 MG/100 ML PREMIX 100 MG IV ×2 (10:29→16:59)
[2024-10-09 11:13] VITALS: BP 111/75; PULSE 91; RESP 16; TEMP 37.1; O2SAT 96
[2024-10-09] MEDS: ciprofloxacin 400 MG/200 ML PREMIX 200 MG IV ×2 (11:34→22:37)
--- NOTE | 2024-10-09 14:38 | P.PN_ITS ---
Subjective 2 Subjective: Patient was seen this morning, he tells me that his diarrhea stopped about 2 days ago, nausea is improving, no fevers, no chills, he does have pain but it is more in the left flank and then the left lower quadrant Vitals/I&O/Wt Last Vital Signs Temp 98.7 F 10/09/24 11:13 Pulse 91 10/09/24 11:13 Resp 16 10/09/24 11:13 BP 111/75 10/09/24 11:13 Pulse Ox 96 10/09/24 11:13 O2 Del Method Room Air 10/09/24 11:13 O2 Flow Rate 2 10/08/24 23:05 10/08/24 10/09/24 10/09/24 22:59 06:59 14:59 Intake Total 1200 / 1200 1763 / 1763 Output Total 1200 / 1200 800 / 800 Balance 0 / 0 963 / 963 Weight last 48 hrs Weight 80.286 kg Weight 80.286 kg Weight 80.286 kg Physical Exam 2 Const: COMMON NORMALS: no acute distress and patient oriented x3 Resp: COMMON NORMALS: normal respiratory effort, No retractions, No use of accessory muscles and clear to auscultation bilaterally AUSCULTATION: clear to auscultation bilaterally Cardio: COMMON NORMALS: regular rate, regular rhythm, S1 normal heart sound present and S2 normal heart sound present RATE: regular rate RHYTHM: r egular rhythm HEART SOUNDS: S1 normal heart sound present and S2 normal heart sound present GI: COMMON NORMALS: Normal to inspection, nondistended, normoactive bowel sounds present and non-tender Extremity: COMMON NORMALS: no pedal edema Neuro: COMMON NORMALS: patient oriented x3 Psych: COMMON NORMALS: mental status grossly normal Data 10/08/24 14:40 10/09/24 04:15 A&P Assessment and plan (1) Primary hypertension: (2) Atrial fibrillation: Qualifiers: Atrial fibrillation type: longstanding persistent Qualified Code(s): I 48.11 - Longstanding persistent atrial fibrillation (3) Gastroenteritis: (4) Diverticulosis large intestine w/o perforation or abscess w/bleeding: (5) Acute renal failure: Qualifiers: Acute renal failure type: unspecified Qualified Code(s): N17.9 - Acute kidney failure, unspecified (6) Acute diverticulitis: Plan KATHY - Multifactorial -Dehydration, emesis -Antihypertensive Plan continue IV antibiotics Acute diverticulitis - Seen on CT imaging - He is pain is more in the left flank than in the left lower quadrant - CRP 26.7 - Continue Cipro and, Flagyl History of tubular adenoma as per pathology report 3 polyps were removed, pathology report mentioned in the HPI A-fib without RVR Continue Eliquis Continue propafenone along Cardizem Hypotension: IV fluids Full code Brat diet DVT prophylaxis covered with Eliquis PDMP PDMP Reviewed: Not Reviewed Attestations 2 Medical Necessity Statement*: Patient requires hospitalization for acute diverticulitis Diagnoses Primary hypertension I10 Longstanding persistent atrial fibrillation I48.11 Atrial fibrillation type: longstanding persistent Gastroenteritis K52.9 Diverticulosis large intestine w/o perforation or abscess w/bleeding K57.31 Acute renal failure N17.9 Acute renal failure type: unspecified Acute diverticulitis K57.92
[2024-10-09 15:41] VITALS: BP 107/73; PULSE 72; RESP 15; TEMP 36.8; O2SAT 95
[2024-10-09 15:54] VITALS: PULSE 85; RESP 18; O2SAT 95
[2024-10-09 21:18] VITALS: BP 110/78; PULSE 83; RESP 17; TEMP 37.1; O2SAT 95
[2024-10-10] VITALS (7 sets, daily range): BP systolic 111–172; BP diastolic 72–85; PULSE 77–87; RESP 15–16; TEMP 36.7–36.8; O2SAT 92–96; BMI 25.4
[2024-10-10] MEDS: metroNIDAZOLE IV 500 MG/100 ML PREMIX 100 MG IV (01:27)
[2024-10-10] MEDS: propafenone 150 mg Tablet 225 MG PO (04:21)
[2024-10-10 05:43] LABS: Basophils # 0.1 10^3/uL (0.0-0.1); Basophils % 0.8 %; Eosinophils # 0.2 10^3/uL (0.0-0.8); Eosinophils % 2.3 %; Hematocrit 45.4 % (37-53); Lymphocytes # 1.5 10^3/uL (0.8-4.8); Mean Corpuscular HGB Conc 34.1 g/dL (30-55); Mean Corpuscular Hemoglobin 31.5 pg (27-33); Mean Corpuscular Volume 92.3 fl (82-101); Mean Platelet Volume 11.6 fL (7.4-10.4); Monocytes % 12.4 %; Neutrophils # 5.03 10^3/uL (1.8-7.7); Neutrophils % 65.1 %; Nucleated Red Blood Cells % 0 %; Platelet Count 195 10^3/cmm (157-399); Red Blood Count 4.92 10^6/uL (3.85-5.65); White Blood Count 7.73 10^3/uL (3.29-11.43)
[2024-10-10 06:03] LABS: Alanine Aminotransferase 20 U/L (0-41); Albumin Level 3.5 g/dL (3.5-5.2); Alkaline Phosphatase 92 U/L (40-130); Anion Gap 14.4 (5-19); Aspartate Amino Transferase 19 U/L (0-40); Blood Urea Nitrogen 23 mg/dL (8-23); Calcium 8.5 mg/dL (8.5-10.5); Carbon Dioxide 24 mmol/L (22-29); Chloride 106 mmol/L (98-107); Creatinine Clr Calc Pharmacy 54.2246; Globulin 2.4 g/dL (1.3-4.6); Glomerular Filtration Rate 50.4 mL/min (90-130); Glucose 115 mg/dL (65-115); Osmolality Calculated 297 mOsm/kg (285-295); Phosphorus 2.4 mg/dL (2.5-4.5); Potassium 3.4 mmol/L (3.5-5.1); Sodium 141 mmol/L (136-145); Total Bilirubin 0.9 mg/dL (0.15-1.2); Total Protein 5.9 g/dL (6.6-8.7)
[2024-10-10] MEDS: acetaminophen 500 mg Tablet PO (06:35)
[2024-10-10] MEDS: potassium phosphate (mEq K) 40 MEQ in sodium chloride 0.9% (100 ml) 100 ML 27.25 MEQ IV (08:54)
[2024-10-10] MEDS: tamsulosin 0.4 mg Capsule PO (08:55)
[2024-10-10] MEDS: apixaban 5 mg Tablet PO (08:55)
[2024-10-10] MEDS: pantoprazole 40 mg SDV IVP (08:55)
[2024-10-10] MEDS: dilTIAZem ER (24HR) 300 mg Capsule PO (08:55)
--- NOTE | 2024-10-10 11:48 | PM.DCS ---
Discharge Providers Date of Admission: 10/08/24 21:22 Date of Discharge: October 10, 2024 Attending Provider at Admission: Akanksha Montes MD Attending Provider at Discharge: Anshul Eastman MD Primary Care Provider: Socorro Ca APRN Diagnoses at Discharge Discharge Diagnosis (1) Primary hypertension: Status: Acute (2) Atrial fibrillation: Status: Acute Qualifiers: Atrial fibrillation type: longstanding persistent Qualified Code(s): I48.11 - Longstanding persistent atrial fibrillation (3) Gastroenteritis: Status: Acute (4) Diverticulosis large intestine w/o perforation or abscess w/bleeding: Status: Chronic (5) Acute renal failure: Status: Acute Qualifiers: Acute renal failure type: unspecified Qualified Code(s): N17.9 - Acute kidney failure, unspecified (6) Acute diverticulitis: Status: Acute Reason for Visit Reason for Visit: n/v/d, 5 days post colonoscopy Hospital Course Hospital Course This is a 60-year-old male with a past medical history of recent colonoscopy, who presents [facility] due to complaints of diarrhea, poor appetite, nausea vomiting Patient was admitted to [facility] for acute kidney injury, dehydration, acute diverticulitis, patient was monitored as inpatient, received IV antibiotics, bowel rest, and clinically monitoring. Overall patient's condition improved, creatinine down to 1.4, diarrhea has resolved, no recurrent bloody or black stools. Patient will be discharged on low fiber diet for 2 weeks, followed by a high-fiber diet after his symptomatology improves in about 2 weeks. Discharged on ciprofloxacin, Flagyl, hydration therapy with a close follow-up with primary care provider For his atrial fibrillation, continue Cardizem, continue propafenone, if his heart rates elevate to greater than 120 or his systolic blood prograde in the 160 or diastolic greater than 90 he can resume his metoprolol. If any recurrent blood or black stools go to the emergency room Physical Exam Const: COMMON NORMALS: no acute distress and patient oriented x3 Resp: COMMON NORMALS: normal respiratory effort, No retractions, No use of accessory muscles and clear to auscultation bilaterally AUSCULTATION: clear to auscultation bilaterally Cardio: COMMON NORMALS: regular rate, regular rhythm, S1 normal heart sound present and S2 normal heart sound present RATE: regular rate RHYTHM: regular rhythm HEART SOUNDS: S1 normal heart sound present and S2 normal heart sound present GI: COMMON NORMALS: Normal to inspection, nondistended, normoactive bowel sounds present and non-tender Extremity: COMMON NORMALS: no pedal edema Neuro: COMMON NORMALS: patient oriented x3 Psych: COMMON NORMALS: mental status grossly normal Discharge Data Studies Completed and Pending Completed Studies During Hospitalization Category Date Time Status CT kidney stone [id number] Stat Cat Scan 10/08/24 16:55 Completed Pending at discharge Category Date Time Status Complete Blood Count w/Auto AM LABS Lab 10/11/24 04:00 Ordered Complete Blood Count w/Auto AM LABS Lab 10/12/24 04:00 Ordered Comprehensive Metabolic Panel AM LABS Lab 10/11/24 04:00 Ordered Comprehensive Metabolic Panel AM LABS Lab 10/12/24 04:00 Ordered Magnesium AM LABS Lab 10/11/24 04:00 Ordered Magnesium AM LABS Lab 10/12/24 04:00 Ordered Phosphorus AM LABS Lab 10/11/24 04:00 Ordered Phosphorus AM LABS Lab 10/12/24 04:00 Ordered Radiology Impressions Abdomen/Pelvis CT 10/08/24 16:55 IMPRESSION: 1. Colonic diverticulosis with minimal adjacent fat stranding within left lower quadrant, concerning for early developing acute diverticulitis. 2. Nonobstructing right nephrolithiasis. 3. Sequela of prior healed granulomatous disease within liver and spleen. COMMENTS: Consistent with the [employer]'s Incidental Findings Committee white paper (J Am Mane Radiol 2018): Any incidental renal lesion less than 1 cm or classified as too small to characterize, or any incidental cystic renal lesion characterized as simple-appearing, is likely benign. No follow-up imaging is recommended for these lesions per consensus recommendations based on imaging criteria. Laboratory Results WBC 7.73 10^3/uL (3.29-11.43) 10/10/24 04:54 RBC 4.92 10^6/uL (3.85-5.65) 10/10/24 04:54 Hgb 15.50 g/dL (11.27-16.99) 10/10/24 04:54 Hct 45.4 % (37-53) 10/10/24 04:54 MCV 92.3 fl (82-101) 10/10/24 04:54 MCH 31.5 pg (27-33) 10/10/24 04:54 MCHC 34.1 g/dL (30-55) 10/10/24 04:54 RDW 13.0 % (12.1-15.1) 10/10/24 04:54 Plt Count 195 10^3/cmm (157-399) 10/10/24 04:54 MPV 11.6 fL (7.4-10.4) H 10/10/24 04:54 Neut % (Auto) 65.1 % 10/10/24 04:54 Lymph % (Auto) 19.0 % 10/10/24 04:54 [place] % (Auto) 12.4 % 10/10/24 04:54 Eos % (Auto) 2.3 % 10/10/24 04:54 Baso % (Auto) 0.8 % 10/10/24 04:54 Neut # (Auto) 5.03 10^3/uL (1.8-7.7) 10/10/24 04:54 Lymph # (Auto) 1.5 10^3/uL (0.8-4.8) 10/10/24 04:54 [place] # (Auto) 1.0 10^3/uL (0.2-0.9) H 10/10/24 04:54 Eos # (Auto) 0.2 10^3/uL (0.0-0.8) 10/10/24 04:54 Baso # (Auto) 0.1 10^3/uL (0.0-0.1) 10/10/24 04:54 Nucleated RBC % (auto) 0 % 10/10/24 04:54 Nucleated RBCs # 0.0 /100WBC 10/10/24 04:54 Sodium 141 mmol/L (136-145) 10/10/24 04:54 Potassium 3.4 mmol/L (3.5-5.1) L 10/10/24 04:54 Chloride 106 mmol/L (98-107) 10/10/24 04:54 Carbon Dioxide 24 mmol/L (22-29) 10/10/24 04:54 Anion Gap 14.4 (5-19) 10/10/24 04:54 BUN 23 mg/dL (8-23) 10/10/24 04:54 Creatinine 1.4 mg/dL (0.7-1.2) H 10/10/24 04:54 GFR Calculation 50.4 mL/min (90-130) L 10/10/24 04:54 Glucose 115 mg/dL (65-115) 10/10/24 04:54 Calculated Osmolality 297 mOsm/kg (285-295) H 10/10/24 04:54 Calcium 8.5 mg/dL (8.5-10.5) 10/10/24 04:54 Phosphorus 2.4 mg/dL (2.5-4.5) L 10/10/24 04:54 Magnesium 2.0 mg/dL (1.7-2.3) 10/10/24 04:54 Total Bilirubin 0.9 mg/dL (0.15-1.2) 10/10/24 04:54 AST 19 U/L (0-40) 10/10/24 04:54 ALT 20 U/L (0-41) 10/10/24 04:54 Alkaline Phosphatase 92 U/L (40-130) 10/10/24 04:54 C-Reactive Protein 26.7 mg/L (0.0-4.9) H 10/09/24 04:15 Total Protein 5.9 g/dL (6.6-8.7) L 10/10/24 04:54 Albumin 3.5 g/dL (3.5-5.2) 10/10/24 04:54 Globulin 2.4 g/dL (1.3-4.6) 10/10/24 04:54 Lipase 97 U/L (13-60) H 10/08/24 14:40 Procalcitonin 0.35 ng/mL (0-0.5) 10/09/24 04:15 Urine Color Yellow (Yellow) 10/08/24 16:44 Urine Appearance Slightly cloudy (CLEAR) 10/08/24 16:44 Urine pH 5 (5-7) 10/08/24 16:44 Ur Specific [place] 1.020 (1.005-1.030) 10/08/24 16:44 Urine Protein 1+ (Negative) A 10/08/24 16:44 Urine Glucose (UA) Norm (Normal) 10/08/24 16:44 Urine Ketones Negative (Negative) 10/08/24 16:44 Urine Blood 2+ (Negative) A 10/08/24 16:44 Urine Nitrate Negative (Negative) 10/08/24 16:44 Urine Bilirubin 1+ (Negative) H 10/08/24 16:44 Urine Urobilinogen Norm mg/dL (Negative) 10/08/24 16:44 Ur Leukocyte Esterase Negative (Negative) 10/08/24 16:44 Urine RBC 0-2 /hpf (0-2) 10/08/24 16:44 Urine WBC 0-5 /hpf (0-5) 10/08/24 16:44 Ur Squamous Epith Cells 11-20 /hpf (0-5) H 10/08/24 16:44 Amorphous Sediment Not Reportable 10/08/24 16:44 Urine Bacteria None seen /hpf (NONE) 10/08/24 16:44 Hyaline Casts 132.82 /lpf 10/08/24 16:44 Fine Granular Casts 5-10 /lpf H 10/08/24 16:44 Vitals Last Vital Signs Temp 98.1 F 10/10/24 07:16 Pulse 85 10/10/24 08:33 Resp 16 10/10/24 08:33 BP 111/74 10/10/24 07:16 Pulse Ox 96 10/10/24 08:33 O2 Del Method Room Air 10/10/24 08:33 O2 Flow Rate 2 10/08/24 23:05 Discharge Plan Discharge Patient Disposition: Home Condition: Stable Prescriptions: New ciprofloxacin HCl 500 mg tablet 500 mg PO BID 10 Days Qty: 20 0RF metronidazole 500 mg tablet 500 mg PO Q8H 10 Days Qty: 30 0RF Continued tamsulosin 0.4 mg capsule 0.4 mg PO BID cholecalciferol (vitamin D3) 25 mcg (1,000 unit) capsule 25 mcg PO DAILY rosuvastatin 5 mg tablet 5 mg PO DAILY Qty: 90 3RF Eliquis 5 mg tablet 5 mg PO BID Qty: 180 3RF diltiazem HCl 300 mg capsule,extended release 24 hr 300 mg PO DAILY Qty: 30 5RF propafenone 225 mg tablet 225 mg PO Q8H Qty: 270 3RF Held metoprolol succinate 50 mg capsule,sprinkle,ER 24hr 50 mg PO DAILY Qty: 90 3RF Hold Instructions: Resume on 10/28/24. Hold until you see cardiology Discontinued losartan 100 mg tablet 100 mg PO QDAY Qty: 90 3RF hydrochlorothiazide 25 mg tablet 25 mg PO QAM Qty: 90 3RF Discharge Orders: Discharge Order (Routine); Ordered 10/10/24 Ordered By: Anshul Eastman Referrals: Socorro Ca APRN [Primary Care Provider] - Akanksha Wagner MD [Physician] - 7-10 days Discharge Diet: Cardiac Discharge Activity: Resume usual activity Patient Instructions: Opioid Safety Activity Restrictions/Additional Instructions: - Please hold hydrochlorothiazide, losartan until you see your primary care provider -Hold metoprolol until you see cardiology - If your systolic blood pressure rises to greater than 160 or diastolic greater than 90 resume metoprolol or if heart rate greater than 120 resume metoprolol - Follow-up with cardiology in 1 week Discharge Attestations Time Spent in Discharge Care*: greater than 30 min Quality Metrics Clinical Quality Measures [ No reported AMI, CVA or VTE this stay] Coding Level of Care Code 48984 Total time (in minutes) for Discharge: 45 Diagnoses Primary hypertension I10 Longstanding persistent atrial fibrillation I48.11 Atrial fibrillation type: longstanding persistent Gastroenteritis K52.9 Diverticulosis large intestine w/o perforation or abscess w/bleeding K57.31 Acute renal failure N17.9 Acute renal failure type: unspecified Acute diverticulitis K57.92
--- NOTE | 2024-10-10 13:43 | PC.NURSE ---
Discussed discharge with patient and spouse. Went over all medications and follow up appointment with patient and spouse. Both Verbalized understanding. Discussed diverticulitis diet as well.
== END 2024-10-10 13:00 | disposition home or self-care (01) | DRG 683 ==
LOC: ER 20:39 → MEDSURG 21:22
PROVIDERS: Emergency Medicine; Family Medicine; Admitting Provider Internal Medicine; Emergency Provider Emergency Medicine; PCP Nurse Practitioner Family; Visit Provider Family Medicine
DX: N17.9 Acute kidney failure, unspecified (principal); E87.1 Hypo-osmolality and hyponatremia; K57.32 Diverticulitis of large intestine without perforation or abscess without bleeding; I48.11 Longstanding persistent atrial fibrillation; I42.9 Cardiomyopathy, unspecified; I10 Essential (primary) hypertension; K52.9 Noninfective gastroenteritis and colitis, unspecified; K57.30 Diverticulosis of large intestine without perforation or abscess without bleeding; E86.0 Dehydration; Z79.01 Long term (current) use of anticoagulants; N40.1 Benign prostatic hyperplasia with lower urinary tract symptoms; Z87.891 Personal history of nicotine dependence; E86.1 Hypovolemia; F17.220 Nicotine dependence, chewing tobacco, uncomplicated; F10.10 Alcohol abuse, uncomplicated; I95.9 Hypotension, unspecified; T46.5X5A Adverse effect of other antihypertensive drugs, initial encounter; T50.2X5A Adverse effect of carbonic-anhydrase inhibitors, benzothiadiazides and other diuretics, initial encounter
CPT/HCPCS: 36415; 74176; 80048; 80053; 81001; 83690; 83735; 84100; 84145; 85025; 86140; 93005; 99285; J0744; J2470; J3480; J3490; J7030; J9999

== ENCOUNTER → 2024-10-15 10:53 | Outpatient (BNVA) | payer OTHER, SELFPAY | PROVIDERS: PCP Nurse Practitioner Family; Visit Provider Internal Medicine Cardiovascular Disease | DX: I48.11 Longstanding persistent atrial fibrillation (principal); I10 Essential (primary) hypertension; I42.9 Cardiomyopathy, unspecified; E78.5 Hyperlipidemia, unspecified; Z87.891 Personal history of nicotine dependence; Z79.01 Long term (current) use of anticoagulants | CPT/HCPCS: 99214 ==

== ENCOUNTER → 2024-10-22 10:03 | Outpatient (BNVA) | payer OTHER, SELFPAY | PROVIDERS: PCP Nurse Practitioner Family; Visit Provider Surgery | DX: Z09 Encounter for follow-up examination after completed treatment for conditions other than malignant neoplasm (principal) | CPT/HCPCS: 99213 ==

== ENCOUNTER 2024-10-22 10:41 | Outpatient (CLI) | payer OTHER, SELFPAY | END 2024-10-22 10:42 | disposition home or self-care (01) | PROVIDERS: PCP Nurse Practitioner Family; Visit Provider Internal Medicine Cardiovascular Disease | DX: N17.9 Acute kidney failure, unspecified (principal) | CPT/HCPCS: 36415; 80048 ==

== ENCOUNTER → 2025-01-16 15:07 | Outpatient (BNVA) | payer OTHER, SELFPAY | PROVIDERS: PCP Nurse Practitioner Family; Visit Provider Internal Medicine Cardiovascular Disease | DX: I48.91 Unspecified atrial fibrillation (principal); Z79.01 Long term (current) use of anticoagulants; I42.9 Cardiomyopathy, unspecified; I10 Essential (primary) hypertension; E78.5 Hyperlipidemia, unspecified; F10.10 Alcohol abuse, uncomplicated; F17.220 Nicotine dependence, chewing tobacco, uncomplicated | CPT/HCPCS: 99214 ==